=== PATIENT | female | born 1950 | race Caucasian/White ===

== ENCOUNTER 2016-11-10 19:54 | Inpatient (IN) ==
[2016-11-10] MEDS ORDERED: ONDANSETRON 4 MG/2 ML VIAL IV STA (20:09)
[2016-11-10] MEDS ORDERED: FUROSEMIDE 100 MG/10 ML VIAL IV STA (20:09)
[2016-11-10] MEDS ORDERED: ENOXAPARIN 100 MG/ML SYRINGE SUBCUT STA (20:11)
[2016-11-10] MEDS ORDERED: FUROSEMIDE 100 MG/10 ML VIAL ONE (20:16)
[2016-11-10] MEDS ORDERED: ONDANSETRON 4 MG/2 ML VIAL ONE (20:16)
[2016-11-10] MEDS ORDERED: ENOXAPARIN 120 MG/0.8 ML SYRINGE SUBCUT ONE (20:16)
[2016-11-10 20:38] LABS: Basophils # 0.1 10*3/uL (0.0-0.2); Basophils % 0.7 % (0.0-0.8); Eosinophils # 0.2 10*3/uL (0.0-0.87); Eosinophils % 1.9 % (0.00-10.9); Hematocrit 41.8 VOL% (35.7-47.0); Hemoglobin 13.8 GM/DL (12.0-16.0); Immature Granulocytes % 0.3 %; Immature Granulocytes Absolute 0.03 #; Lymphocytes # 3.3 10*3/uL (1.4-4.0); Mean Corpuscular Hemoglobin 31 PG (27-34); Mean Corpuscular Volume 94.8 FL (87-102); Mean Platelet Volume 11.5 FL (9.6-12.0); Monocytes # 0.6 10*3/uL (0.11-0.8); Monocytes % 6.8 % (1.7-12.7); Neutrophils # 4.6 10*3/uL (1.4-7.4); Neutrophils % 52.3 % (38.7-73.9); Platelet Count 252 T/CUMM (130-400); Red Blood Count 4.41 MC/CUMM (3.8-5.5); White Blood Count 8.7 T/CUMM (4-12)
--- NOTE | 2016-11-10 21:03 | Emergency Department Note ---
Ronnie Gonzalez Mantricia, am scribing for, and in the presence of, Naveed Rao MD 20:22. Maira Gonzalez Charles R, MD, personally performed the services described in this documentation, ascribed by Srikanth Trujillo in my presence, and it is both accurate and complete . Arrival - Arrival Chief Complaint: Arrhythmia/Palpitations Stated Complaint: A-Fib ED Nursing Triage Note: C/C pt went to [facility] ER this evening for CP, hurting all day. Pt has hx of A-fib. Pt denied CP at this time. Pt was sent here for A- fib RVR. Mode of Arrival: Stretcher Limitations: No Limitations Source: Patient Time Seen by Provider: 11/10/16 20:07 - History of Present Illness HPI Narrative: Pt is a 66 y/o white female arriving to ED with c/o chest pain that onset today. She is a transfer from [facility]. She was sent here for a A-fib RVR. Pt reports that she has been having the pain all day; however she denies pain at this time. She also reports a UTI about a week ago, but it has now cleared up. Pt has a PMHx of CHF, a heart cath, acid reflux, cholecystectomy, and an appendicitis but denies DM and HLD. She also denies smoking or ever taking blood thinners. Pt states that she cannot be shocked because she has a brain stimulator device in her chest. Onset (ago): hour(s) Consistency: constant Severity: mild Severity scale (1-10): 3 Allergies/Adverse Reactions: Allergies Allergy/AdvReac Type Severity Reaction Status Date / Time aspirin Allergy Palpitation Verified 11/10/16 20:10 s Review of System - Review of System 12 point system: reviewed and no additional remarkable complaints except as stated - Review of System Constitutional: Absent: chills, diaphoresis, fever Eyes: Absent: discharge, pain Head/Ears/Nose/Throat: Absent: earache Respiratory: Absent: cough, respiratory distress, wheezing Cardiovascular: Present: chest pain. Absent: dyspnea on exertion Gastrointestinal: Absent: abdominal pain, nausea, vomiting, diarrhea Genitourinary female: Absent: abnormal menses, dysuria Musculoskeletal: Absent: arm pain, back pain, lower back pain, leg pain, neck pain Skin: Absent: rash, lesions Neurological: Absent: headache, weakness Psychiatric: Absent: anxiety, depression Medical,Surgical,& Family Hx - Medical History Cardio: History of: Cardiac Dysrhythmia (A-fib), CHF, CAD, Hypertension Neurology: History of: Cerebrovascular Accident, Parkinson's Disease Endocrine: No history of: Diabetes Mellitus (IDDM), Diabetes Mellitus (NIDDM), Dyslipidemia Respiratory: History of: Asthma Genitourinary: History of: Recurring Urinary Tract Infections Gastrointestinal: History of: GERD - Surgical History Cardiac Surgeries: Sugical HX of: Cardiac Catheterization Neurologic Surgeries: Surgical HX of: Neurologic Surgery (Deep brain stimulation surgery) HEENT Surgeries: Surgical HX of: Tonsilectomy & Adenoidectomy Abdominal Surgeries: Surgical HX of: Cholecystectomy Patient denies: Appendectomy Reproductive Surgeries: Patient denies;: Hysterectomy Orthopedic Surgeries: Surgical HX of;: Total Knee Replacement (L knee) - Social History Smoking Status: Never smoker Frequency of Alcohol Use: None Type of Drug Use: None Exam Vital Signs: Vital Signs Temperature 98.4 F 11/10/16 19:54 Pulse Rate 138 H 11/10/16 19:54 Respiratory Rate 18 11/10/16 19:54 Blood Pressure 110/69 11/10/16 19:54 O2 Sat by Pulse Oximetry 99 11/10/16 19:54 - General General appearance: alert, in no apparent distress - Head Head exam: Present: atraumatic, normocephalic, normal inspection - Eye Eye exam: Present: normal appearance, PERRL, EOMI - ENT ENT exam: Present: normal exam, normal oropharynx, mucous membranes moist, TM's normal bilaterally, normal external ear exam - Neck Neck exam: Present: full ROM, trachea midline, other (distention). Absent: tenderness - Chest Chest inspection: Present: normal inspection, symmetric chest wall rise. Absent : tenderness - Respiratory Respiratory exam: Present: rales - Cardiovascular Cardiovascular exam: Present: normal rhythm, tachycardia, normal heart sounds - Abdominal Exam Abdominal exam: Present: soft, normal bowel sounds. Absent: distention, tenderness, guarding, rebound - Extremities Exam Extremities exam: Present: full ROM, normal capillary refill, other (+1 edema in LE). Absent: tenderness - Back Exam Back exam: Present: normal inspection, full ROM. Absent: tenderness - Neurological Exam Neurological exam: Present: alert, oriented X3, CN II-XII intact, reflexes normal - Psychiatric Psychiatric exam: Present: normal affect, normal mood - Skin Skin exam: Present: warm, dry, intact, normal color Course - Consultations Consultation #1: Hospitalist will admit Time: 21:02 Results - Labs CBC & BMP: 11/10/16 20:18 Lab Results: I have reviewed the patients labs Critical Care Time Critical Care Time: Yes Total Critical Care Time: 60 Disposition Clinical Impression: Palpitations, Anxiety, Atrial fibrillation with RVR, Congestive heart failure, COPD (chronic obstructive pulmonary disease), Acute dyspnea, Chest pain Case discussed with: patient Disposition: Still a Patient Condition: Guarded Time of Disposition: 21:03
[2016-11-10 21:13] LABS: Alanine Aminotransferase 27 U/L (13-56); Albumin 3.5 G/DL (3.4-5.0); Alkaline Phosphatase 126 U/L (45-117); Aspartate Amino Transferase 27 U/L (0-37); Bilirubin,Total < 0.39 MG/DL (0.2-1.0); Blood Urea Nitrogen 14 MG/DL (7-18); Calcium 8.7 MG/DL (8.5-10.1); Glucose 112 MG/DL (74-106); Magnesium 1.5 MG/DL (1.8-2.4); Osmolality,Calculated 274.8 MOS/KG (273-304); Potassium 4.4 MMOL/L (3.5-5.1); Sodium 137 MMOL/L (136-145); Total Protein 7.1 G/DL (6.4-8.3); Troponin I Only < 0.015 NG/ML (0.00-0.045)
[2016-11-10] MEDS ORDERED: DIGOXIN 0.5 MG/2 ML AMP ONE ×2 (21:19→21:20)
[2016-11-10] MEDS ORDERED: DIGOXIN 0.5 MG/2 ML AMP IV STA ×3 (21:23→21:45)
--- NOTE | 2016-11-10 21:26 | EKG Report ---
Stationary ECG Study [facility] Test Date: 11/10/2016 9:27:31 PM Pat Name: JOSE LACY Department: Room: 125 Gender: F Media Relations Specialist: : 1950 Requested by: Naveed Khalil Order Number: [id number] Reading MD: BECKY KIMBALL Intervals [place] Rate: 138 P: 999 LA: 0 QRS: 34 QRSD: 95 T: 120 QT: 179 QTc: 260 Interpretive Statements ATRIAL FLUTTER WITH RAPID VENTRICULAR RESPONSE Electronically Signed On 11-11-16 13:46:34 CDT by BECKY KIMBALL [id number]
[2016-11-10] MEDS ORDERED: DIGOXIN 0.25 MG TABLET PO STA (22:36)
--- NOTE | 2016-11-10 22:49 | Hospitalist History & Physical ---
Assessment and Plan (1) Atrial flutter Status: Acute Assessment and plan: Continue Duragesic digitalis for the meantime. Because of hypotension amiodarone was foregone. Patient will be seen by cardiology obtain a 2D echo to assess chambers. Again he should be noted that if the blood pressure is robust and the patient goes back into atrial flutter fib was muller patient will be put on amiodarone drip. Current Visit: Yes (2) Hypotension Status: Acute Assessment and plan: Monitor blood pressure closely on digitalis. Continue serial troponins. Put patient on the Lovenox for full anticoagulation. Current Visit: Yes (3) Parkinsonism Status: Acute Assessment and plan: This patient has brain stimulators put in the chest. Avoid any electric shocks to this patient because that can kill her. Current Visit: Yes History of Present Illness Chief complaint: Transfer from [facility] with palpitation arrhythmia and hypotension History of present illness: Ms. Kapadia is a 66 year old female arriving to ED with c/o chest pain that onset today. She is a transfer from [facility]. She was sent here for a A-fib RVR. Pt reports that she has been having the pain all day; however she denies pain at this time. She also reports a UTI about a week ago, but it has now cleared up. Pt has a PMHx of CHF, a heart cath, acid reflux, cholecystectomy, and an appendicitis but denies DM and HLD. She also denies smoking or ever taking blood thinners. Pt states that she cannot be shocked because she has a brain stimulator device in her chest. Reportedly this patient was given some medication at [facility] suspected to be diltiazem to slow her heart down to drop her blood pressure. Patient vented. After the syncopal episode and recovery patient was shaved to [facility] ER where she was seen by Dr. Rao. The ER physician put the patient back on the diltiazem drip and started her on a full dose Lovenox for A. fib anticoagulation which she was not on. Patient is known to have atrial fibrillation she says. She also has a history of parkinsonism for which she has brain stimulator for management of it. His brain stimulators are present in the chest. Because of these she cannot receive any cardioversion or shock during ACLS. When I saw the patient in the hospital she was on diltiazem drip with systolic blood pressure in the 80s. Heart rate was around 145 beats a minute and quite irregular. Patient was in atrial flutter with approximately 1-2 conduction. He did complain of some chest discomfort transiently that went away. Because of persistent hypotension and intolerance to diltiazem I was forced to discontinue it and give the patient IV digitalis. This was given at a dose of 0.25 mg IV slowly every 5-10 minutes guided by the patient's heart rate response. She received 0.75 mg total. Last time was at the bedside it was around 72 and systolic blood pressure was above 100. She was to get the Lovenox plan to put her on oral digitalis with a plan to check dig level in the morning. Patient will be admitted to CCU Allergies Allergy/AdvReac Type Severity Reaction Status Date / Time aspirin Allergy Palpitation Verified 11/10/16 20:10 s Medical,Surgical,& Family Hx - Medical History Cardio: History of: Cardiac Dysrhythmia (A-fib), CHF, CAD, Hypertension Neurology: History of: Cerebrovascular Accident, Parkinson's Disease Endocrine: No history of: Diabetes Mellitus (IDDM), Diabetes Mellitus (NIDDM), Dyslipidemia Respiratory: History of: Asthma Genitourinary: History of: Recurring Urinary Tract Infections Gastrointestinal: History of: GERD - Surgical History Cardiac Surgeries: Sugical HX of: Cardiac Catheterization Neurologic Surgeries: Surgical HX of: Neurologic Surgery (Deep brain stimulation surgery) HEENT Surgeries: Surgical HX of: Tonsilectomy & Adenoidectomy Abdominal Surgeries: Surgical HX of: Cholecystectomy Patient denies: Appendectomy Reproductive Surgeries: Patient denies;: Hysterectomy Orthopedic Surgeries: Surgical HX of;: Total Knee Replacement (L knee) - Social History Smoking Status: Never smoker Frequency of Alcohol Use: None Type of Drug Use: None Review of systems: 12 point system assessment was done. Review of systems significant for the chief complaint history of presenting illness above and past medical history. She is not in pain at this time no respiratory distress no altered mental status Exam - Constitutional Vitals: Period Temp Pulse Resp BP Sys/Stevens Pulse Ox Last 24 Hr 98.4 F-98.4 F 138-138 16-18 110/69 99 General appearance: normal weight, no acute distress - Head Head exam: Present: normocephalic, atraumatic - Eye Eye exam: Present: EOMI Pupils: Present: RYAN - ENT ENT exam: Present: normal oropharynx - Neck Neck exam: Present: other (Supple neck patient has electrodes running on both side of her neck for brain stimulation) - Respiratory Respiratory exam: Present: clear to auscultation bilaterally, other (No rales no wheezing) - Cardiovascular Cardiovascular exam: Present: other (Patient is in atrial flutter 1-2 conduction at presentation and now the rate around 70s) - Extremities Exam Extremities exam: Present: full ROM - Back Exam Back exam: Present: normal inspection - Neurological Exam Neurological exam: Present: alert, oriented X3, CN II-XII intact - Psychiatric Psychiatric exam: Present: other (Slightly apprehensive but appropriate) - Skin Skin exam: Present: normal color, warm, dry Results - Labs CBC & BMP: 11/10/16 20:18 11/10/16 20:18 Lab Results: I have reviewed the past 24 hour labs
[2016-11-11] MEDS ORDERED: SODIUM CHLORIDE 0.9% 500 ML IV ONE (00:31)
[2016-11-11] MEDS: SODIUM CHLORIDE 0.9% 1,000 ML IV SCH ×2 (01:25→14:53)
[2016-11-11] MEDS: NOREPINEPHRINE 8 MG in SODIUM CHLORIDE 0.9% 242 ML IV SCH (03:03)
[2016-11-11 05:37] LABS: Troponin I Only < 0.015 NG/ML (0.00-0.045)
--- NOTE | 2016-11-11 06:51 | Cardiology Consult Note ---
Assessment and Plan - Time spent with patient Time spent with patient: Greater than 30 minutes (exam, interview, chart review , documentation and orders) (1) Parkinson disease Status: Chronic Assessment and plan: Status post surgical intervention with masked face. Significant gait abnormality which I did not examine or observe Current Visit: Yes (2) Obesity Status: Chronic Current Visit: Yes Qualifiers: Obesity type: due to excess calories (3) Obstructive sleep apnea Status: Chronic Assessment and plan: She states that she had a sleep study years ago and she had obstructive sleep apnea but "not enough to wear a mask." This was many years ago Current Visit: Yes (4) Narcotic abuse Status: Chronic Current Visit: Yes (5) Chest pain Status: Acute Assessment and plan: She has negative cardiac biomarkers no EKG changes. This appears to be related to her rate and atrial flutter with 2 1 AV block. Therefore likely rate related possible demand ischemia Current Visit: Yes (6) Atrial flutter Status: Acute Assessment and plan: I do not know if this is new or old. She states she has had problems with fast heart rate for many years. I suspect is related to her comorbidities including obstructive sleep apnea obesity hypoventilation syndrome and possibly underlying cardiomyopathy. If she has a cardiomyopathy is currently difficult to tell if this is due to the rate or if the dysrhythmia due to underlying cardiomyopathy. Current Visit: Yes (7) Hypotension Status: Acute Assessment and plan: Likely multifactorial. Will await her urinalysis white counts normal I suspect this is due to diuresis. She appears to be slightly volume contracted by exam she is received several doses of Lasix. We are gently rehydrating because she may very well have underlying cardiomyopathy based on exam. Look for other causes try to wean her pressors down her heart rates under control Current Visit: Yes History of Present Illness - Data of Consult Patient: new to practice Consult date: 11/11/16 Requesting Physician: Herb Timmons ([place] [facility]) - Consult Narrative Reason for consult: tachycardia and hypotension History of present illness: Ms. Kapadia is a 66 year old female who gives a history of many medical problems but is currently not on any medications for these medical problems that include congestive heart failure and Parkinson disease as major diagnosis as well as some type of long-standing tachycardia. She states that she had surgery for her Parkinson disease in [place] and had a stroke after this but "they denied it but my daughter who is a nurse practitioner in [place] called him on it." The patient states that she sleeps in a recliner at home because of chronic back pain after a suboptimal back surgery. Her primary care physician is Dr. Potts in [place]. She is on no medications for any heart failure regimen regimen nor is she on any Parkinson's medications. She is on mainly mood altering, skeletal muscle relaxants and narcotic pain medications. She is alleges that she has palpitations with aspirin. She denies any anaphylactoid or anaphylactic type symptoms skin changes or airway compromise. The patient states that she saw Dr. Suh as the last system support developer for heart failure. Dr. Suh has not been practicing for almost 20 years. The patient states that she has heart failure. She is not aware of her ejection fraction she states she has never had a heart cath initially and then she states may be she has had one in the past. It is very difficult to know. The patient came to the emergency room at [facility] because last when she was seen by her home health care nurse she had a heart rate of 160+. Dr. Potts was notified and gave her by systolic and came back the next day was still high they increased her Bystolic this is gone on for several episodes since that time and now ultimately she was referred to the [facility] emergency room where she was found to be in atrial flutter with 2-1 block and a heart rate of basically 150. She was transferred here. She has been given Lasix for her heart failure she has been given IV digoxin. They gave her a 20 mg bolus of IV Cardizem at [facility] and dropped precipitously dropped her blood pressure. She was transferred here she received more Lasix and more digoxin I was called this last night around midnight because of her persistent tachycardia. I ordered a fluid bolus and a lower dose diltiazem. Her heart rate has come down but apparently she was started on pressors in the interim. She is alert awake sitting with a head of bed up approximately 30 with Cardizem infusion at 5 mg/h and Levophed infusion as well. Her only request is that I remove her Gallegos. The patient initially told me she did not walk at all she told me that she lives independently with her daughter living next door to her then she told me she does walk with a walker. Is very difficult to get a meaningful history from this patient. If you asked the same question in 2 different ways you get 2 different answers frequently. CC: Herb Timmons MD - Home Medications and Allergies Home Medications: Home Medications Medication Instructions Recorded Confirmed Type Furosemide Tab [Lasix Tab] 40 mg PO BID DIURETIC 11/11/16 11/11/16 History HYDROcodone/ACETAMIN 5-325 [[place] 5 mg PO Q3-4H PRN 11/11/16 11/11/16 History 5-325] LORazepam TAB [Ativan Tab] 1 mg PO TID 11/11/16 11/11/16 History Nitroglycerin Sl Tab [Nitrostat] 0.4 mg PO DIRECTED PRN 11/11/16 11/11/16 History Orphenadrine Citrate 100 mg PO BID 11/11/16 11/11/16 History Promethazine Tab [Phenergan Tab] 25 mg PO Q4-6H 11/11/16 11/11/16 History Venlafaxine HCl [Venlafaxine HCl 75 mg PO Q6HR 11/11/16 11/11/16 History ER] tiZANidine [Zanaflex] 4 mg PO BEDTIME 11/11/16 11/11/16 History Allergies/Adverse Reactions: Allergies Allergy/AdvReac Type Severity Reaction Status Date / Time aspirin Allergy Palpitation Verified 11/10/16 20:10 s - Constitutional Constitutional: Present: daytime sleepiness, fatigue, headache(s), lethargy, malaise, weakness, weight gain. Absent: stops breathing during sleep - EENT Eyes: Present: blurry vision. Absent: diplopia Ears: Absent: decreased hearing Nose, mouth and throat: Present: headache(s), hoarseness. Absent: lip swelling , nasal congestion - Cardiovascular Cardiovascular: Present: chest pain at rest (When her heart rate was 150), dyspnea, dyspnea on exertion, lightheadedness, palpitations. Absent: chest pain with activity, edema, orthopnea, PND - Respiratory Respiratory: Present: dyspnea, dyspnea on exertion. Absent: cough - Gastrointestinal Gastrointestinal: Present: constipation, dyspepsia, heartburn. Absent: abdominal pain, bloating - Genitourinary Genitourinary: Present: dysuria - Musculoskeletal Musculoskeletal: Present: arthralgias, back pain, limited range of motion, muscle cramps, muscle weakness, myalgias - Neurological Neurological: Present: abnormal speech, dizziness - Psychiatric Psychiatric: Present: depression, difficulty concentrating - Endocrine Endocrine: Present: heat intolerance. Absent: cold intolerance - Hematologic/Lymphatic Hematologic/Lymphatic: Absent: easy bleeding, easy bruising Medical,Surgical,& Family Hx - Medical History Cardio: History of: Cardiac Dysrhythmia (atrial flutter), CHF (never been evaluated or treated but diagnosis known to patient), Hypertension Neurology: History of: Cerebrovascular Accident (this is not clear), Parkinson' s Disease Endocrine: No history of: Diabetes Mellitus (IDDM), Diabetes Mellitus (NIDDM), Dyslipidemia Respiratory: History of: Asthma Genitourinary: History of: Recurring Urinary Tract Infections Gastrointestinal: History of: GERD - Surgical History Cardiac Surgeries: Sugical HX of: Cardiac Catheterization (many years ago???) Neurologic Surgeries: Surgical HX of: Neurologic Surgery (Deep brain stimulation surgery) HEENT Surgeries: Surgical HX of: Tonsilectomy & Adenoidectomy Abdominal Surgeries: Surgical HX of: Cholecystectomy Patient denies: Appendectomy Reproductive Surgeries: Patient denies;: Hysterectomy Orthopedic Surgeries: Surgical HX of;: Total Knee Replacement (L knee) - Social History Smoking Status: Never smoker Frequency of Alcohol Use: None Type of Drug Use: None Lives With:: Alone Functional capacity: uses cane/walker Physical Examination Vital Signs Temp Pulse Resp BP Pulse Ox 98.4 F 138 H 18 110/69 99 11/10/16 19:54 11/10/16 19:54 11/10/16 19:54 11/10/16 19:54 11/10/16 19:54 General: Present: Appears Well HEENT: Present: Mucus Membranes Dry, Other (no appreciable JVD). Absent: Jaundice, Pallor Neck: Present: Supple Neck, Midline Trachea Cardiac: Present: Reg Rate and Rhythm (atrial flutter with 3:1 AV block at this time), S1/S2, Laterally Displaced, Other (tones not crisp) Lungs: Present: No Wheeze, Rales, Rhonchi Neuro: Present: Cranial Nerve 2-12 Intact Abdomen: Present: Soft, Active Bowel Sounds Gait: Present: Poor Gait Extremities: Absent: Edema Result/EKG - Labs CBC & BMP: 11/10/16 20:18 11/10/16 20:18 Labs: Laboratory Results - last 24 hr 11/11/16 11/11/16 03:43 03:43 Total Creatine Kinase 63 CK-MB (CK-2) 1.6 Troponin I < 0.015 Digoxin 1.70 - EKG EKG results: interpreted by me (atrial flutter.)
[2016-11-11] MEDS ORDERED: ENOXAPARIN 100 MG/ML SYRINGE SUBCUT SCH (07:00)
[2016-11-11 07:13] LABS: Free T4 (Free Thyroxine) 1.22 NG/DL (0.76-1.46); Thyroid Stimulating Hormone 1.41 uIU/ml (0.358-3.74)
--- NOTE | 2016-11-11 07:48 | EKG Report ---
Stationary ECG Study [facility] Test Date: 11/11/2016 2:31:22 AM Pat Name: JOSE LACY Department: Room: 125 Gender: F Self Pay Collector: : 1950 Requested by: Herb Timmons Order Number: [id number] Reading MD: BCEKY KIMBALL Intervals [place] Rate: 111 P: 999 GA: 0 QRS: 21 QRSD: 98 T: 0 QT: 178 QTc: 244 Interpretive Statements ATRIAL FLUTTER WITH RAPID VENTRICULAR RESPONSE NON-SPECIFIC ST-T CHANGES Electronically Signed On 11-11-16 13:51:55 CDT by BECKY KIMBALL [id number]
[2016-11-11] MEDS: ENOXAPARIN 120 MG/0.8 ML SYRINGE SUBCUT SCH ×2 (08:55→18:20)
--- NOTE | 2016-11-11 08:55 | Physician Query Form ---
CLICK EDIT DOCUMENT TO SELECT QUERY ANSWER --> OK --> SIGN Vicki Vo RN, CCDS Certified Clinical Green Energy Marketing Analyst W) [phone] (f) [phone] [email or web address] PROVIDERS: Make your selection(s) from the choices in EACH section by typing an "x" and enter comments in the comment section. Please use your independent medical judgment in providing your response. This request does not imply that any particular answer is desired or expected. CLINICAL INDICATORS: (Providers should not edit this section) The medical record indicates that the patient was admitted with AF, congestive heart failure, acute dyspnea, BNP of 679# and the patient was treated with IV Lasix. Please provide further specificity regarding CHF. ACUITY: ( ) Acute ( ) Chronic ( x) Acute on Chronic ( ) Clinically unable to determine TYPE: ( x) Systolic ( ) Diastolic ( ) Combined Systolic/Diastolic ( ) Other, please specify: ( ) Clinically unable to determine ( ) The patient does NOT have CHF COMMENTS: Use of terms such as suspected, likely, or probable (associated with a specific diagnosis that is being evaluated, monitored, or treated as if it exists) are acceptable and can be restated in the discharge summary if not ruled out. [facility]
[2016-11-11] MEDS: CARVEDILOL 3.125 MG TABLET PO SCH ×2 (08:56→20:14)
[2016-11-11] MEDS: MAGNESIUM OXIDE 400 MG TABLET PO SCH ×2 (08:56→20:14)
[2016-11-11 09:24] LABS: Troponin I Only < 0.015 NG/ML (0.00-0.045)
[2016-11-11] MEDS ORDERED: ONDANSETRON 4 MG/2 ML VIAL ONE (09:29)
[2016-11-11] MEDS: ONDANSETRON 4 MG/2 ML VIAL IV PRN (09:32)
[2016-11-11] MEDS: ACETAMINOPHEN 325 MG TABLET PO PRN (09:52)
--- NOTE | 2016-11-11 10:57 | ECHO Report ---
Sandra Kapadia Exam Date: 11/11/2016 09:23 Referring Physician: Technologist: Caridad Porter RDCS Age: 66 Ht (in): 67 Wt (lb): 269 Gender: F Exam Location: [facility] Echo Indications: Chest pain, unspecified, Parkinson disease, AKTELYNN, Essential (primary) hypertension, Atrial flutter, Tachycardia, unspecified, Palpitations, Narcotic abuse, Weakness, Chronic fatigue, unspecified BP: 131 / 71 HR: 113 Rhythm: Atrial flutter Technical Quality: IMPRESSIONS Left ventricular ejection fraction is estimated at 60 %. Diastolic parameters are equivocal as the patient is in atrial fibrillation. Tricuspid regurgitation velocities suggest a RVSP of 37 mmHg plus the right atrial pressure. Biatrial enlargement Mild right ventricular enlargement MEASUREMENTS (Male / Female) Normal Values 2D ECHO LV Diastolic Diameter PLAX 5.2 cm 4.2 - 5.9 / 3.9 - 5.3 cm LV Systolic Diameter PLAX 3.4 cm LV Fractional Shortening PLAX 35.5 % IVS Diastolic Thickness 1.0 cm 0.6 - 1.0 / 0.6 - 0.9 cm LVPW Diastolic Thickness 1.0 cm 0.6 - 1.0 / 0.6 - 0.9 cm RV Internal Dim ED PLAX 3.3 cm Aortic Root Diameter 3.1 cm LA Systolic Diameter LX 3.4 cm 3.0 - 4.0 / 2.7 - 3.8 cm DOPPLER TR Peak Velocity 304.0 cm/s TR Peak Gradient 37.0 mmHg FINDINGS Left Ventricle Normal left ventricular cavity size. Normal left ventricular wall thickness. Left ventricular ejection fraction is estimated at 60 %. There is limited endocardial resolution however there appears to be no regional wall motion abnormality. Diastolic parameters are equivocal as the patient is in atrial fibrillation. Right Ventricle The right ventricle appears to be slightly enlarged. Right Atrium Mild atrial enlargement in apical view (elongated RA). Left Atrium Mild atrial enlargement in apical view (elongated LA). Mitral Valve Morphologically normal mitral valve. Trace to mild mitral valve regurgitation. Aortic Valve Morphologically normal aortic valve without significant sclerosis or stenosis. There is no aortic regurgitation. Tricuspid Valve Morphologically normal tricuspid valve. Mild tricuspid valve regurgitation. Tricuspid regurgitation velocities suggest a RVSP of 37 mmHg plus the right atrial pressure. Peak regurgitant velocity 3.04 m/s. Pulmonic Valve Morphologically normal pulmonic valve without significant stenosis. There is no pulmonic regurgitation. Pericardium Normal pericardium without effusion. Aorta Normal ascending aorta dimension. Roxanne Suazo (Electronically Signed) Final Date: 11 Nov 2016 10:56
[2016-11-11] MEDS ORDERED: DIGOXIN 0.25 MG TABLET PO SCH (13:00)
--- NOTE | 2016-11-11 13:07 | Hospitalist Progress Note ---
Assessment and Plan (1) Atrial flutter Status: Acute Assessment and plan: 1)aflutter- on dilt and dig with improved rate and BP. on lovenox which Dr Suazo and Dr Timmons discussed with her daughter. 2)dehydration- gentle hydration 3)chronic benodazepine and narcotic use 4)KATELYNN- did not tolerate mask years ago 5)Parkinsons disease- brain stimulator 6)anxiety- also on venlafaxine- restarted Current Visit: Yes (2) Anxiety Status: Acute Current Visit: Yes (3) Hypotension Status: Acute Current Visit: Yes (4) Parkinson disease Status: Chronic Current Visit: Yes (5) Obesity Status: Chronic Current Visit: Yes Qualifiers: Obesity type: due to excess calories (6) Obstructive sleep apnea Status: Chronic Current Visit: Yes Hospitalist: Subjective Interval history: Mrs Kapadia is doing ok this morning. She has a headache as she is prone to and requests some tylenol. Her afib/flutter is under much better control with Dig added and we are weaning her levophed. Exam - Constitutional Vitals: Period Temp Pulse Resp BP Sys/Stevens Pulse Ox Last 24 Hr 97 F-98 F 74-143 13-23 69-131/39-101 92-99 General appearance: mild distress, morbidly obese - Eye Eye exam: Present: EOMI. Absent: scleral icterus - Respiratory Respiratory exam: Present: clear to auscultation bilaterally (distant due to body habitus) - Cardiovascular Cardiovascular exam: Present: irregular rhythm - GI/Abdominal GI/Abdominal exam: Present: normal bowel sounds, soft. Absent: tenderness - Extremities Exam Extremities exam: Absent: edema - Neurological Exam Neurological exam: Present: alert, oriented X3, CN II-XII intact - Skin Skin exam: Present: warm, dry Results - Labs CBC & BMP: 11/10/16 20:18 11/10/16 20:18 Lab Results: I have reviewed the past 24 hour labs
--- NOTE | 2016-11-11 13:46 | EKG Report ---
Stationary ECG Study [facility] Test Date: 11/10/2016 8:00:21 PM Pat Name: JOSE LACY Department: Room: 125 Gender: F Pension Adviser: : 1950 Requested by: Naveed Khalil Order Number: [id number] Reading MD: BECKY KIMBALL Intervals [place] Rate: 138 P: 999 AR: 0 QRS: 46 QRSD: 93 T: 120 QT: 174 QTc: 255 Interpretive Statements ATRIAL FLUTTER WITH RAPID VENTRICULAR RESPONSE Electronically Signed On 11-11-16 13:45:55 CDT by BECKY KIMBALL [id number]
[2016-11-11] MEDS: PROMETHAZINE 25 MG TABLET PO SCH ×3 (13:47→20:55)
[2016-11-11 14:47] LABS: Troponin I Only < 0.015 NG/ML (0.00-0.045)
[2016-11-11] MEDS: LORazepam 1 MG TABLET PO SCH ×2 (14:53→20:14)
[2016-11-11] MEDS ORDERED: FUROSEMIDE 40 MG TABLET PO SCH (16:00)
[2016-11-11] MEDS: VENLAFAXINE 75 MG TABLET PO SCH ×2 (17:03→20:13)
[2016-11-12] MEDS: PROMETHAZINE 25 MG TABLET PO SCH ×6 (00:09→20:07)
[2016-11-12] MEDS: NOREPINEPHRINE 8 MG in SODIUM CHLORIDE 0.9% 242 ML IV SCH (01:34)
[2016-11-12 04:52] LABS: Basophils % 0.5 % (0.0-0.8); Eosinophils # 0.1 10*3/uL (0.0-0.87); Eosinophils % 1.3 % (0.00-10.9); Hematocrit 37.1 VOL% (35.7-47.0); Hemoglobin 12.2 GM/DL (12.0-16.0); Immature Granulocytes % 0.1 %; Immature Granulocytes Absolute 0.01 #; Lymphocytes # 2.8 10*3/uL (1.4-4.0); Lymphocytes % 36.7 % (21.3-54.2); Mean Corpuscular HGB Conc 32.9 GM/DL (32-36); Mean Corpuscular Hemoglobin 31 PG (27-34); Mean Corpuscular Volume 93.9 FL (87-102); Mean Platelet Volume 11.6 FL (9.6-12.0); Monocytes # 0.6 10*3/uL (0.11-0.8); Monocytes % 7.3 % (1.7-12.7); Neutrophils # 4.2 10*3/uL (1.4-7.4); Neutrophils % 54.1 % (38.7-73.9); Platelet Count 217 T/CUMM (130-400); Red Blood Count 3.95 MC/CUMM (3.8-5.5); Red Cell Distribution Width 12.9 % (9.3-17.3); White Blood Count 7.7 T/CUMM (4-12)
[2016-11-12] MEDS: SODIUM CHLORIDE 0.9% 1,000 ML IV SCH (05:00)
[2016-11-12 05:15] LABS: Calcium 7.9 MG/DL (8.5-10.1); Magnesium 1.8 MG/DL (1.8-2.4); Osmolality,Calculated 278.4 MOS/KG (273-304); Potassium 3.6 MMOL/L (3.5-5.1)
[2016-11-12 05:20] LABS: Calcium 7.6 MG/DL (8.5-10.1); Potassium 3.7 MMOL/L (3.5-5.1)
[2016-11-12] MEDS: ENOXAPARIN 120 MG/0.8 ML SYRINGE SUBCUT SCH ×2 (06:01→18:03)
--- NOTE | 2016-11-12 08:09 | XRay Report ---
2 view chest. Indication: Shortness of breath. Comparison: November 10, 2016. The heart is enlarged. 2 electronic devices are present over the chest wall which have leads extending cephalad. Atelectasis has developed in the left lung base. Postsurgical changes of the cervical spine. No pleural effusion. Degenerative changes of the spinal column. Impression: Development of left basilar atelectasis. Stable cardiomegaly. PROCEDURE INTERPRETED AT [facility] DEPARTMENT OF RADIOLOGY Final Report Signed by: Dr. Maru Hayes
[2016-11-12] MEDS: MAGNESIUM OXIDE 400 MG TABLET PO SCH ×2 (09:25→20:07)
[2016-11-12] MEDS: CARVEDILOL 3.125 MG TABLET PO SCH (09:25)
[2016-11-12] MEDS: LORazepam 1 MG TABLET PO SCH ×3 (09:25→20:07)
[2016-11-12] MEDS: VENLAFAXINE 75 MG TABLET PO SCH ×5 (09:25→20:06)
--- NOTE | 2016-11-12 09:38 | Electrophysiology Consultation ---
History of Present Illness - Data of Consult Patient: new to practice Consult date: 11/12/16 Requesting Physician: Roxanne Suazo - Consult Narrative Reason for consult: AFl/RVR, hypotension History of present illness: Ms. Kapadia is a 66 year old female, whi was transferred from [facility] due to A. fib/flutter, RVR, hypertension. She has a history of intermittent tachycardia but she does not recall history of A. fib or flutter in the past. She has severe Parkinson disease, for which she underwent placement of brain stimulator, with bilateral pacemaker devices in both chests. She has not been using these devices recently. Her symptoms are stable. She is obese and quite sedentary, due to chronic, severe low back pain. The surgery for her Parkinson was complicated by periprocedural CVA. She noticed increased heart rate last week and that was evaluated at [facility], initially, she was diuresed, which caused hypotension and more prominent RVR, then was transferred to [facility]. She was given IV fluids, was started on Cardizem drip, now her heart rate is 75 bpm, atrial flutter with 2-1 conduction, typical flutter morphology. She had atrial fibrillation earlier this admission. Now she is feeling fine. Echo showed normal systolic function, borderline pulmonary hypertension, mild biatrial enlargement. She had chest pain, when she was in RVR, no troponin leak. No significant ST-T changes, although difficult to access due to large flutter waves. CC: Kia Elizabeth MD - Home Medications and Allergies Home Medications: Home Medications Medication Instructions Recorded Confirmed Type Furosemide Tab [Lasix Tab] 40 mg PO BID DIURETIC 11/11/16 11/11/16 History HYDROcodone/ACETAMIN 5-325 [[place] 5 mg PO Q3-4H PRN 11/11/16 11/11/16 History 5-325] LORazepam TAB [Ativan Tab] 1 mg PO TID 11/11/16 11/11/16 History Nitroglycerin Sl Tab [Nitrostat] 0.4 mg PO DIRECTED PRN 11/11/16 11/11/16 History Orphenadrine Citrate 100 mg PO BID 11/11/16 11/11/16 History Promethazine Tab [Phenergan Tab] 25 mg PO Q4-6H 11/11/16 11/11/16 History Venlafaxine HCl [Venlafaxine HCl 75 mg PO Q6HR 11/11/16 11/11/16 History ER] tiZANidine [Zanaflex] 4 mg PO BEDTIME 11/11/16 11/11/16 History Allergies/Adverse Reactions: Allergies Allergy/AdvReac Type Severity Reaction Status Date / Time aspirin Allergy Palpitation Verified 11/10/16 20:10 s Medical,Surgical,& Family Hx - Medical History Cardio: History of: Cardiac Dysrhythmia (atrial flutter), CHF (never been evaluated or treated but diagnosis known to patient), CAD, Hypertension Neurology: History of: Cerebrovascular Accident (this is not clear), Parkinson' s Disease Endocrine: No history of: Diabetes Mellitus (IDDM), Diabetes Mellitus (NIDDM), Dyslipidemia Respiratory: History of: Asthma Genitourinary: History of: Recurring Urinary Tract Infections Gastrointestinal: History of: GERD - Surgical History Cardiac Surgeries: Sugical HX of: Cardiac Catheterization (many years ago???) Neurologic Surgeries: Surgical HX of: Neurologic Surgery (Deep brain stimulation surgery) HEENT Surgeries: Surgical HX of: Tonsilectomy & Adenoidectomy Abdominal Surgeries: Surgical HX of: Cholecystectomy Patient denies: Appendectomy Reproductive Surgeries: Patient denies;: Hysterectomy Orthopedic Surgeries: Surgical HX of;: Total Knee Replacement (L knee) - Social History Smoking Status: Never smoker Frequency of Alcohol Use: None Type of Drug Use: None 12 point system: reviewed and no additional remarkable complaints except as stated Exam - Constitutional Vitals: Period Temp Pulse Resp BP Sys/Stevens Pulse Ox Last 24 Hr 96.1 F-97.4 F 77-126 16-33 93-129/50-74 90-97 General appearance: normal weight, morbidly obese - Head Head exam: Present: normal inspection, normocephalic - Eye Eye exam: Absent: conjunctival injection Pupils: Absent: dilated - ENT ENT exam: Present: normal exam - Neck Neck exam: Present: normal inspection - Respiratory Respiratory exam: Present: clear to auscultation bilaterally - Cardiovascular Cardiovascular exam: Present: irregular rhythm, systolic murmur, tachycardia - GI/Abdominal GI/Abdominal exam: Present: normal bowel sounds. Absent: distended - Extremities Exam Extremities exam: Present: normal inspection, normal capillary refill. Absent: edema - Back Exam Back exam: Present: normal inspection - Neurological Exam Neurological exam: Present: alert, oriented X3 - Psychiatric Psychiatric exam: Present: normal affect, normal mood - Skin Skin exam: Present: normal color, warm. Absent: cyanosis Results - Labs CBC & BMP: 11/12/16 04:36 11/12/16 04:36 Lab Results: I have reviewed the past 24 hour labs Assessment and Plan (1) Atrial fibrillation with RVR Status: Acute Assessment and plan: 64-year-old female, presenting with atrial fibrillation/atypical atrial flutter , RVR, hypertension. Mild acute kidney injury, resolved with hydration. Severe Parkinson's disease, status post bilateral brain stimulator. Morbid obesity, chronic pain issues. -Typical atrial flutter and atrial fibrillation. Heart rate is now better controlled. Stop Coreg, digoxin. Preserved systolic function, borderline PHTN. Start sotalol 120 mg twice daily, mild acute kidney injury resolved. -Continue to wean off Cardizem drip. Switch to p.o., if heart rate remains elevated with sotalol. -Check daily EKG, monitor QTC. Follow BMP/magnesium. -Blood pressure is now normal, with better controlled heart rate. Had borderline PHTN even when she was dehydrated. Stop IVF. I would continue to hold off Lasix for now, unless becomes symptomatic from congestion/volume overload. -If the arrhythmia persists and remains symptomatic, we may need to proceed with a cardioversion. I contacted [employer] and awaiting response if CV can be performed with her brain stimulators. 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 Continue to pursue intensive rate/rhythm control. Northera is an option if this remains an issue. -If she remains refractory, ablation can be pursued. We would need to address suspected sleep apnea, before proceeding with this. Will get a sleep consult. -Continue anticoagulation. We may switch her to a NOAC, before discharge. Current Visit: Yes (2) COPD (chronic obstructive pulmonary disease) Status: Acute Current Visit: Yes (3) Chest pain Status: Acute Current Visit: Yes (4) Atrial flutter Status: Acute Current Visit: Yes (5) Hypotension Status: Acute Current Visit: Yes (6) Parkinsonism Status: Chronic Current Visit: Yes (7) Obesity Status: Chronic Current Visit: Yes Qualifiers: Obesity type: due to excess calories (8) Obstructive sleep apnea Status: Chronic Current Visit: Yes
--- NOTE | 2016-11-12 09:48 | Cardiology Progress Note ---
Ladarius Gonzalez April, RN, am scribing for, and in the presence of, Roxanne Suazo DO 09 :48. Assessment and Plan (1) Atrial flutter Status: Acute Current Visit: Yes (2) Parkinsonism Status: Chronic Current Visit: Yes (3) Narcotic abuse Status: Chronic Current Visit: Yes (4) Obesity Status: Chronic Current Visit: Yes Qualifiers: Obesity type: due to excess calories (5) Obstructive sleep apnea Status: Chronic Current Visit: Yes Cardiology - PN: Subj Interval history: Ms. Kapadia is seen in the cardiac care unit resting in bed in no acute distress. Oxygen is in use via nasal cannula, O2 sat 93%. She denies any chest pain, shortness of breath, palpitations, or dizziness. She says she slept very well last night. telemetry monitor currently shows atrial flutter with heart rates in the 80s, blood pressure 97/73. The nurse tells me her diltiazem infusion was stopped yesterday because her heart rates were within normal range. During the night they elevated as high as in the 140s and the diltiazem had to be started back, diltiazem is currently infusing at 15. I saw Ms. Kapadia this morning with Ms. Durand. I discussed with Dr. Carl in the CCU I will ask him to see Mr. Kapadia. She has not been tolerant of AV karen blocking agents because of hypertension. She has a preserved ejection fraction continues to be in atrial flutter. His help is appreciated. It certainly seems as Parkinson's may be playing a role in her hypotension his help is greatly appreciated worship of normal sinus rhythm may be helpful Exam (Progress Note) - Constitutional Vitals: Period Temp Pulse Resp BP Sys/Setvens Pulse Ox Last 24 Hr 96.1 F-97.4 F 77-126 16-33 93-131/50-74 90-97 General appearance: no acute distress, morbidly obese - Head Head exam: Absent: abrasion, hematoma - Eye Eye exam: Absent: periorbital swelling, laceration to eyelids - Respiratory Respiratory exam: Present: clear to auscultation bilaterally, other (oxygen via nasal canula). Absent: accessory muscle use, chest wall tenderness - Cardiovascular Cardiovascular exam: Present: irregular rhythm - GI/Abdominal GI/Abdominal exam: Present: normal bowel sounds, soft. Absent: distended, tenderness - Extremities Exam Extremities exam: Absent: edema - Neurological Exam Neurological exam: Present: alert, oriented X3 - Psychiatric Psychiatric exam: Present: normal affect, normal mood - Skin Skin exam: Present: warm, dry Result/EKG - Labs CBC & BMP: 11/12/16 04:36 11/12/16 04:36 Lab Results: I have reviewed the past 24 hour labs Labs: Laboratory Results - last 24 hr 11/11/16 11/11/16 11/12/16 08:43 13:52 04:36 WBC RBC Hgb Hct MCV MCH MCHC RDW Plt Count MPV Neut % (Auto) Lymph % (Auto) [place] % (Auto) Eos % (Auto) Baso % (Auto) Neut # (Auto) Lymph # (Auto) [place] # (Auto) Eos # (Auto) Baso # (Auto) Immature Gran % Nucleated RBC % Immature Gran # Nucleated RBCs # Sodium 140 Potassium 3.6 Chloride 104 Carbon Dioxide 30 Anion Gap 9.6 BUN 11 Creatinine 1.00 GFR Calculation 79 BUN/Creatinine Ratio 11.00 Glucose 119 H Calculated Osmolality 278.4 Calcium 7.9 L Magnesium 1.8 Total Creatine Kinase 66 61 CK-MB (CK-2) 1.6 1.6 Troponin I < 0.015 < 0.015 11/12/16 11/12/16 04:36 04:36 WBC 7.7 RBC 3.95 Hgb 12.2 Hct 37.1 MCV 93.9 MCH 31 MCHC 32.9 RDW 12.9 Plt Count 217 MPV 11.6 Neut % (Auto) 54.1 Lymph % (Auto) 36.7 [place] % (Auto) 7.3 Eos % (Auto) 1.3 Baso % (Auto) 0.5 Neut # (Auto) 4.2 Lymph # (Auto) 2.8 [place] # (Auto) 0.6 Eos # (Auto) 0.1 Baso # (Auto) 0.0 Immature Gran % 0.1 Nucleated RBC % 0.0 Immature Gran # 0.01 Nucleated RBCs # 0.00 Sodium 143 Potassium 3.7 Chloride 105 Carbon Dioxide 30 Anion Gap 11.7 BUN 11 Creatinine 0.90 GFR Calculation 90 BUN/Creatinine Ratio 12.00 Glucose 123 H Calculated Osmolality 284.0 Calcium 7.6 L Magnesium Total Creatine Kinase CK-MB (CK-2) Troponin I - EKG EKG results: interpreted by me (atrial flutter with variable AV block.) I, Roxanne Suazo, , personally performed the services described in this documentation, ascribed by Abigail Durand RN in my presence, and it is both accurate and complete 948 .
[2016-11-12] MEDS: SOTALOL 80 MG TABLET PO SCH ×2 (10:20→20:06)
--- NOTE | 2016-11-12 12:52 | Hospitalist Progress Note ---
Assessment and Plan (1) Atrial flutter Status: Acute Assessment and plan: 1)aflutter- on dilt and dig with improved rate and BP. on lovenox which Dr Suazo and Dr Timmons discussed with her daughter. Dr Carl has seen her and recommends at this point stopping dig and coreg adn starting sotolol and weaning dilt drip. Continue anticoagulation with Lovenox. 2)dehydration- rseolved, fluids stopped. 3)chronic benodazepine and narcotic use 4)KATELYNN- did not tolerate mask years ago- Dr Garcia to see. 5)Parkinsons disease- brain stimulator 6)anxiety- also on venlafaxine- restarted Current Visit: Yes (2) Anxiety Status: Acute Current Visit: Yes (3) Hypotension Status: Acute Current Visit: Yes (4) Parkinson disease Status: Chronic Current Visit: Yes (5) Obesity Status: Chronic Current Visit: Yes Qualifiers: Obesity type: due to excess calories (6) Obstructive sleep apnea Status: Chronic Current Visit: Yes Hospitalist: Subjective Interval history: Mrs Kapadia looks better today. She remains in afib buther heart rate at this time is in the 80-90 range and her BP is better- she is off pressors. She is feeling better. Exam - Constitutional Vitals: Period Temp Pulse Resp BP Sys/Stevens Pulse Ox Last 24 Hr 96.1 F-97.4 F 77-107 16-33 93-129/50-72 90-97 General appearance: no acute distress, morbidly obese - Head Head exam: Present: normocephalic, atraumatic - Eye Eye exam: Present: EOMI. Absent: scleral icterus - Respiratory Respiratory exam: Present: clear to auscultation bilaterally - Cardiovascular Cardiovascular exam: Present: irregular rhythm - GI/Abdominal GI/Abdominal exam: Present: normal bowel sounds, soft. Absent: tenderness - Extremities Exam Extremities exam: Absent: edema Results - Labs CBC & BMP: 11/12/16 04:36 11/12/16 04:36 Lab Results: I have reviewed the past 24 hour labs
--- NOTE | 2016-11-12 13:28 | Sleep Medicine Consult ---
Assessment and Plan (1) Obstructive sleep apnea Status: Chronic Assessment and plan: This patient has never been formally diagnosed with obstructive sleep apnea but with her presenting illness and her comorbidities and physical findings, I do think that sleep evaluation should be done to exclude obstructive sleep apnea. This patient resides in [place] and would much rather have her sleep evaluation done in [place] and we will therefore set her up at the [facility] sleep center to be done as soon as possible. She does understand that she could be done quicker if she could get over here but she thinks she will have a hard time being able to do so. Follow-up after her sleep study will be at the [facility] sleep clinic. I will be out of town for the rest of this week. Thank you for this consult and the opportunity to participate in her care. Current Visit: Yes (2) Atrial fibrillation with RVR Status: Acute Assessment and plan: Untreated obstructive sleep apnea can be a contributing factor to atrial fibrillation. The prevalence rate for obstructive sleep apnea in patients with A. fib ranges from 30-80%. Controlling the underlying sleep apnea can decrease recurrence rate by almost 50%. Current Visit: Yes History of Present Illness Chief complaint: Sleep apnea History of present illness: Ms. Kapadia is a 66 year old female transferred from outside hospital in [place] with atrial fibrillation with rapid ventricular response. She has been seen by cardiology and sleep medicine was consulted. She does have a history of snoring but denies any difficulty maintaining sleep. She has never been told that she stops breathing during sleep and denies awakening from sleep short of breath. She usually retires around 10 or 11 PM and awakens between 7 and 8 the next morning. She will take a nap each afternoon but denies falling asleep while reading or doing other routine activities. She does have significant chronic health problems that includes Parkinson's disease. She does have a brain stimulator in place and apparently with its placement surgically, she suffered a perioperative stroke. She does have a family history of obstructive sleep apnea. Home Medications Medication Instructions Recorded Confirmed Type Furosemide Tab [Lasix Tab] 40 mg PO BID DIURETIC 11/11/16 11/11/16 History HYDROcodone/ACETAMIN 5-325 [[place] 5 mg PO Q3-4H PRN 11/11/16 11/11/16 History 5-325] LORazepam TAB [Ativan Tab] 1 mg PO TID 11/11/16 11/11/16 History Nitroglycerin Sl Tab [Nitrostat] 0.4 mg PO DIRECTED PRN 11/11/16 11/11/16 History Orphenadrine Citrate 100 mg PO BID 11/11/16 11/11/16 History Promethazine Tab [Phenergan Tab] 25 mg PO Q4-6H 11/11/16 11/11/16 History Venlafaxine HCl [Venlafaxine HCl 75 mg PO Q6HR 11/11/16 11/11/16 History ER] tiZANidine [Zanaflex] 4 mg PO BEDTIME 11/11/16 11/11/16 History Allergies Allergy/AdvReac Type Severity Reaction Status Date / Time aspirin Allergy Palpitation Verified 11/10/16 20:10 s Review of systems: She does have a history of some restless legs. Exam (Pulmonay) H&P - Constitutional Vitals: Period Temp Pulse Resp BP Sys/Stevens Pulse Ox Last 24 Hr 96.1 F-97.4 F 77-107 16-33 93-129/50-72 90-97 Exam: She is alert and responsive in no acute distress. Pupils equal round reactive to light and accommodation. Extraocular movements intact. Oropharynx with a class IV Mallampati exam. Neck is supple without adenopathy or thyromegaly. Chest with symmetrical breath sounds without focal wheeze or rhonchi. Cardiac exam reveals a regular rhythm without murmur or gallop. Abdomen obese nontender without palpable hepatosplenomegaly or mass. Extremities are without clubbing, cyanosis, or edema. Neurologically, she is grossly intact. She moves all extremities with good strength. Medical,Surgical,& Family Hx - Medical History Cardio: History of: Cardiac Dysrhythmia (atrial flutter), CHF (never been evaluated or treated but diagnosis known to patient), CAD, Hypertension Neurology: History of: Cerebrovascular Accident (this is not clear), Parkinson' s Disease Endocrine: No history of: Diabetes Mellitus (IDDM), Diabetes Mellitus (NIDDM), Dyslipidemia Respiratory: History of: Asthma Genitourinary: History of: Recurring Urinary Tract Infections Gastrointestinal: History of: GERD - Surgical History Cardiac Surgeries: Sugical HX of: Cardiac Catheterization (many years ago???) Neurologic Surgeries: Surgical HX of: Neurologic Surgery (Deep brain stimulation surgery) HEENT Surgeries: Surgical HX of: Tonsilectomy & Adenoidectomy Abdominal Surgeries: Surgical HX of: Cholecystectomy Patient denies: Appendectomy Reproductive Surgeries: Patient denies;: Hysterectomy Orthopedic Surgeries: Surgical HX of;: Total Knee Replacement (L knee) - Social History Smoking Status: Never smoker Frequency of Alcohol Use: None Type of Drug Use: None Results - Labs CBC & BMP: 11/12/16 04:36 11/12/16 04:36 Labs: TSH within normal limits
[2016-11-12] MEDS: ACETAMINOPHEN 325 MG TABLET PO PRN (17:57)
[2016-11-12] MEDS ORDERED: LOPERAMIDE 2 MG CAPSULE PO PRN (18:23)
[2016-11-12] MEDS: LACTOBACILLUS ACIDOPHILUS/BULGARICUS CHEW TABLET PO SCH (20:06)
[2016-11-13] MEDS: PROMETHAZINE 25 MG TABLET PO SCH ×6 (00:53→20:32)
[2016-11-13] MEDS: ENOXAPARIN 120 MG/0.8 ML SYRINGE SUBCUT SCH ×3 (06:24→18:05)
[2016-11-13 06:40] LABS: Calcium 8.5 MG/DL (8.5-10.1); Potassium 3.9 MMOL/L (3.5-5.1)
--- NOTE | 2016-11-13 07:27 | EKG Report ---
Stationary ECG Study [facility] Test Date: 11/13/2016 7:27:04 AM Pat Name: JOSE LACY Department: Room: 125 Gender: F Program Eligibility Specialist: PAMELLA : 1950 Requested by: Yemi Carl Order Number: [id number] Reading MD: LISA GLORIA Intervals [place] Rate: 117 P: 999 PA: 0 QRS: 85 QRSD: 98 T: 3 QT: 341 QTc: 410 Interpretive Statements ATRIAL FLUTTER/TACHYCARDIA WITH RAPID VENTRICULAR RESPONSE LOW QRS VOLTAGE IN PRECORDIAL LEADS POOR QUALITY TRACING Electronically Signed On 11-13-16 19:46:09 CDT by LISA GLORIA [id number]
--- NOTE | 2016-11-13 07:27 | Electrophysiology Progress Not ---
Assessment and Plan (1) Atrial fibrillation with RVR Status: Acute Assessment and plan: 64-year-old female, presenting with atrial fibrillation/atypical atrial flutter , RVR, hypertension. Mild acute kidney injury, resolved with hydration. Severe Parkinson's disease, status post bilateral brain stimulator. Morbid obesity, chronic pain issues. -Typical atrial flutter and atrial fibrillation. Continue sotalol. Check daily EKG, follow QTC. No proarrhythmia noted so far. Still RVR, even at rest. -We discussed risks and benefits of management options. If the sotalol is not providing rhythm control, we will plan to proceed with a ARLEN/flutter ablation on Wednesday under MAC. Her Parkinson's likely contributes to her unstable blood pressure with the arrhythmia. Pharmacological rate control of the typical atrial flutter will likely be unsuccessful. -Although she also had atrial fibrillation in the past, I would not pursue a PVI in her case. Confirmed with [employer], her bilateral brain stimulators are very high risk for cerebral injury, if cardioversion is performed. During A. fib ablation, hemodynamically unstable SVT, need for cardioversion is not uncommon. Once the flutter is ablated, we will continue sotalol for rhythm control. She is also getting KATELYNN workup. -Hypotension, acute kidney injury. Resolved. I suspect this was due to dehydration. -Continue anticoagulation. Follow CBC. -Discussed treatment plan with patient's daughter, who is in SAL[employer]IST[employer]. Current Visit: Yes (2) COPD (chronic obstructive pulmonary disease) Status: Acute Current Visit: Yes (3) Chest pain Status: Acute Current Visit: Yes (4) Atrial flutter Status: Acute Current Visit: Yes (5) Hypotension Status: Acute Current Visit: Yes (6) Parkinsonism Status: Chronic Current Visit: Yes (7) Obesity Status: Chronic Current Visit: Yes Qualifiers: Obesity type: due to excess calories (8) Obstructive sleep apnea Status: Chronic Current Visit: Yes Electrophysiology Subjective Interval history: Still in typical atrial flutter, variable conduction, up to 2-1. Her blood pressure now improved. Exam - Constitutional Vitals: Period Temp Pulse Resp BP Sys/Stevens Pulse Ox Last 24 Hr 97.6 F-97.9 F 77-153 14-32 84-128/31-111 90-97 General appearance: no acute distress, morbidly obese - Head Head exam: Present: normal inspection, normocephalic - Eye Eye exam: Absent: conjunctival injection Pupils: Absent: dilated - ENT ENT exam: Present: normal external ear exam - Neck Neck exam: Present: normal inspection - Respiratory Respiratory exam: Present: clear to auscultation bilaterally, prolonged expiratory phase - Cardiovascular Cardiovascular exam: Present: irregular rhythm, tachycardia - GI/Abdominal GI/Abdominal exam: Present: normal bowel sounds. Absent: distended - Extremities Exam Extremities exam: Present: normal inspection, normal capillary refill. Absent: edema - Back Exam Back exam: Present: normal inspection - Neurological Exam Neurological exam: Present: alert, oriented X3 - Psychiatric Psychiatric exam: Present: normal affect, normal mood - Skin Skin exam: Present: normal color, warm. Absent: cyanosis Results - Labs CBC & BMP: 11/12/16 04:36 11/13/16 04:44 Lab Results: I have reviewed the past 24 hour labs
[2016-11-13] MEDS: LORazepam 1 MG TABLET PO SCH ×3 (08:00→20:30)
[2016-11-13] MEDS: VENLAFAXINE 75 MG TABLET PO SCH ×4 (08:00→20:30)
[2016-11-13] MEDS: SOTALOL 80 MG TABLET PO SCH ×2 (08:00→20:30)
[2016-11-13] MEDS: MAGNESIUM OXIDE 400 MG TABLET PO SCH ×2 (08:01→20:30)
[2016-11-13] MEDS: LACTOBACILLUS ACIDOPHILUS/BULGARICUS CHEW TABLET PO SCH ×2 (08:02→20:30)
--- NOTE | 2016-11-13 09:48 | Cardiology Progress Note ---
Ladarius Gonzalez April, RN, am scribing for, and in the presence of, Roxanne Suazo DO 09 :48. Assessment and Plan (1) Atrial flutter Status: Acute Current Visit: Yes Qualifiers: Atrial flutter type: typical Qualified Code(s): I48.3 - Typical atrial flutter (2) Parkinsonism Status: Chronic Current Visit: Yes (3) Narcotic abuse Status: Chronic Current Visit: Yes (4) Obesity Status: Chronic Current Visit: Yes Qualifiers: Obesity type: due to excess calories (5) Obstructive sleep apnea Status: Chronic Current Visit: Yes (6) Atrial fibrillation with RVR Status: Acute Current Visit: Yes Cardiology - PN: Subj Interval history: Ms. Kapadia is seen in cardiac care unit in no acute distress. Oxygen use via nasal cannula, O2 sat 94%. She is currently in a flutter with heart rate of 118. The nurse that her heart rate did get up in the 150s last night, but it was when she been up to the bathroom. She is no longer on the diltiazem infusion. Sotalol 120 mg p.o. twice daily was started yesterday. Dr. Carl has seen patient in consultation. If the sotalol does not provide rhythm control he will plan to do a ARLEN/flutter ablation Wednesday. Blood pressures currently 114 /71. She reports she is still having some chest pain intermittently, stating is the same pain she has had since admission. Troponin has been negative 4 since admission. She reports she only gets short of breath when she gets up and moves around. She reports she does have palpitations and feel fluttering when her heart rate gets elevated. Saw and examined the patient this morning with Ms. Durand. I discussed with Dr. Carl. Plans for ablation on Wednesday after ARLEN. The patient's heart rate is down blood pressures remains marginal heart rate is in the 1 teens at this time she has no cardiopulmonary complaints. She is currently on sotalol will continue to monitor daily ECGs and agree with transfer out of ICU. Exam (Progress Note) - Constitutional Vitals: Period Temp Pulse Resp BP Sys/Stevens Pulse Ox Last 24 Hr 97.6 F-97.9 F 77-153 14-32 84-128/31-111 90-97 General appearance: no acute distress, morbidly obese - Head Head exam: Absent: abrasion, hematoma - Eye Eye exam: Absent: periorbital swelling, laceration to eyelids - Respiratory Respiratory exam: Present: clear to auscultation bilaterally, other (Oxygen via nasal cannula). Absent: accessory muscle use, chest wall tenderness - Cardiovascular Cardiovascular exam: Present: irregular rhythm, tachycardia - GI/Abdominal GI/Abdominal exam: Present: normal bowel sounds, tenderness, soft. Absent: distended - Extremities Exam Extremities exam: Absent: edema - Neurological Exam Neurological exam: Present: alert, oriented X3 - Psychiatric Psychiatric exam: Present: normal affect, anxious - Skin Skin exam: Present: warm, dry Result/EKG - Labs CBC & BMP: 11/12/16 04:36 11/13/16 04:44 Lab Results: I have reviewed the past 24 hour labs Labs: Laboratory Results - last 24 hr 11/13/16 04:44 Sodium 143 Potassium 3.9 Chloride 105 Carbon Dioxide 33 H Anion Gap 8.9 BUN 11 Creatinine 0.80 GFR Calculation 104 BUN/Creatinine Ratio 13.00 Glucose 113 H Calculated Osmolality 284.0 Calcium 8.5 Magnesium 2.0 - EKG EKG results: interpreted by me (Atrial flutter) I, Roxanne Suazo, , personally performed the services described in this documentation, ascribed by Abigail Durand RN in my presence, and it is both accurate and complete 948 .
--- NOTE | 2016-11-13 15:43 | Hospitalist Progress Note ---
Assessment and Plan (1) Atrial flutter Status: Acute Assessment and plan: 1)afib/flutter- on sotolol now, for ablation of flutter on Wednesday if it doesn't convert her or control her rhythm. Anticoagulated with lovenox. 2)chronic benzo and narcotic use 3)KATELYNN- Dr Otero has seen her and she will have a sleep study in [place] 4)Parkinson's disease- she has a brain stimulator that has helped her tremendously since it was placed. It means however that cardioversion should be avoided- see Dr Carl's note. 5)anxiety- on her home meds. 6)to telemetry today. Current Visit: Yes Qualifiers: Atrial flutter type: typical Qualified Code(s): I48.3 - Typical atrial flutter (2) Anxiety Status: Acute Current Visit: Yes (3) Hypotension Status: Acute Current Visit: Yes (4) Parkinson disease Status: Chronic Current Visit: Yes (5) Obesity Status: Chronic Current Visit: Yes Qualifiers: Obesity type: due to excess calories (6) Obstructive sleep apnea Status: Chronic Current Visit: Yes Hospitalist: Subjective Interval history: Mrs Kapadia is doing well today. Dr Carl has talked to her daughter and answered her questions. She is transferring to telemetry today on the Sotolol with tentative plans for ablation on Wednesday if it doesn't control her rate. She has been off the Diltiazem infusion for a day. She is mostly worried about her daughters worrying about her- they are a very close family. She is personally feeling encouraged. Exam - Constitutional Vitals: Period Temp Pulse Resp BP Sys/Stevens Pulse Ox Last 24 Hr 96.8 F-97.9 F 71-153 13-29 82-128/31-111 90-97 General appearance: no acute distress, morbidly obese - Head Head exam: Present: normocephalic, atraumatic - Eye Eye exam: Present: EOMI. Absent: scleral icterus - Respiratory Respiratory exam: Present: clear to auscultation bilaterally - Cardiovascular Cardiovascular exam: Present: irregular rhythm - GI/Abdominal GI/Abdominal exam: Present: normal bowel sounds, soft. Absent: tenderness - Extremities Exam Extremities exam: Present: edema (trace) Results - Labs CBC & BMP: 11/12/16 04:36 11/13/16 04:44 Lab Results: I have reviewed the past 24 hour labs
[2016-11-13] MEDS ORDERED: DILTIAZEM 50 MG/10 ML VIAL IV ONE (22:53)
[2016-11-14] MEDS: PROMETHAZINE 25 MG TABLET PO SCH ×6 (01:24→21:26)
[2016-11-14] MEDS: ACETAMINOPHEN 325 MG TABLET PO PRN ×2 (01:32→19:05)
[2016-11-14 04:55] LABS: Calcium 8.7 MG/DL (8.5-10.1); Osmolality,Calculated 282.3 MOS/KG (273-304)
[2016-11-14] MEDS: ENOXAPARIN 120 MG/0.8 ML SYRINGE SUBCUT SCH ×2 (06:16→18:09)
--- NOTE | 2016-11-14 08:00 | Cardiology Progress Note ---
Assessment and Plan (1) Atrial flutter Status: Acute Current Visit: Yes Qualifiers: Atrial flutter type: typical Qualified Code(s): I48.3 - Typical atrial flutter (2) Parkinsonism Status: Chronic Current Visit: Yes (3) Narcotic abuse Status: Chronic Current Visit: Yes (4) Obesity Status: Chronic Current Visit: Yes Qualifiers: Obesity type: due to excess calories (5) Obstructive sleep apnea Status: Chronic Current Visit: Yes (6) Atrial fibrillation with RVR Status: Acute Current Visit: Yes Cardiology - PN: Subj Interval history: Ms. Kapadia has no complaints at this time. She is on a Cardizem infusion her heart rate is an 85 and atrial flutter at this typical on the cannoneer. She is somnolent but responsive wakes up in has no complaints. The patient EKG is pending from this morning. We will monitor to assess her QTc interval sotalol. Review Dr. Carl's note and plans for intervention on Wednesday with a flutter ablation ARLEN are noted. I will start oral Cardizem at a rate comparable to her current IV infusion rate and try to wean her IV infusion. Labs tomorrow specifically CBC given her high-dose low molecular weight heparin. Exam (Progress Note) - Constitutional Vitals: Period Temp Pulse Resp BP Sys/Stevens Pulse Ox Last 24 Hr 96.8 F-98.2 F 71-145 13-20 82-121/54-70 90-97 General appearance: over weight - Head Head exam: Present: normal inspection - Eye Eye exam: Present: EOMI Pupils: Present: RYAN - Respiratory Respiratory exam: Present: clear to auscultation bilaterally - Cardiovascular Cardiovascular exam: Present: irregular rhythm (Rates about 80 she is in flutter with variable block on telemetry) - GI/Abdominal GI/Abdominal exam: Present: normal bowel sounds - Extremities Exam Extremities exam: Present: normal inspection - Neurological Exam Neurological exam: Present: alert, oriented X3 - Psychiatric Psychiatric exam: Present: normal affect, normal mood Result/EKG - Labs CBC & BMP: 11/12/16 04:36 11/14/16 03:17 Labs: Laboratory Results - last 24 hr 11/14/16 03:17 Sodium 141 Potassium 4.0 Chloride 101 Carbon Dioxide 32 Anion Gap 12.0 BUN 18 Creatinine 0.80 GFR Calculation 104 BUN/Creatinine Ratio 22.00 H Glucose 106 Calculated Osmolality 282.3 Calcium 8.7 Magnesium 2.0
--- NOTE | 2016-11-14 08:13 | EKG Report ---
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
[2016-11-14] MEDS: SOTALOL 80 MG TABLET PO SCH ×2 (08:17→21:25)
[2016-11-14] MEDS: VENLAFAXINE 75 MG TABLET PO SCH ×4 (08:17→21:26)
[2016-11-14] MEDS: MAGNESIUM OXIDE 400 MG TABLET PO SCH ×2 (08:17→21:25)
[2016-11-14] MEDS: LORazepam 1 MG TABLET PO SCH ×3 (08:18→21:25)
[2016-11-14] MEDS: DILTIAZEM CD 120 MG CAPSULE PO SCH (08:25)
--- NOTE | 2016-11-14 11:25 | Hospitalist Progress Note ---
Assessment and Plan (1) Atrial flutter Status: Acute Assessment and plan: Atrial flutter with RVR. On Cardizem drip. Cardiology following with plans for ablation on Wednesday Current Visit: Yes Qualifiers: Atrial flutter type: typical Qualified Code(s): I48.3 - Typical atrial flutter (2) Chest pain Status: Acute Current Visit: Yes (3) Parkinson disease Status: Chronic Current Visit: Yes (4) Obstructive sleep apnea Status: Chronic Current Visit: Yes Hospitalist: Subjective Interval history: Pt reports some rate related chest pressure. On Cardizem drip. Noted plans for ablation om Wednesday. Exam - Constitutional Vitals: Period Temp Pulse Resp BP Sys/Stevens Pulse Ox Last 24 Hr 96.6 F-98.2 F 71-145 13-20 82-121/54-70 90-97 General appearance: no acute distress - Head Head exam: Present: normocephalic, atraumatic - Eye Eye exam: Present: EOMI Pupils: Present: RYAN - ENT ENT exam: Present: normal exam - Neck Neck exam: Present: normal inspection. Absent: lymphadenopathy - Respiratory Respiratory exam: Present: clear to auscultation bilaterally. Absent: accessory muscle use, rhonchi, wheezes - Cardiovascular Cardiovascular exam: Present: tachycardia. Absent: diastolic murmur, gallop, rubs - GI/Abdominal GI/Abdominal exam: Present: normal bowel sounds. Absent: distended, tenderness - Extremities Exam Extremities exam: Present: normal inspection, full ROM - Neurological Exam Neurological exam: Present: alert, oriented X3 - Psychiatric Psychiatric exam: Present: normal affect, normal mood - Skin Skin exam: Present: normal color, warm, dry Results - Labs CBC & BMP: 11/12/16 04:36 11/14/16 03:17
[2016-11-14] MEDS: LACTOBACILLUS ACIDOPHILUS/BULGARICUS CHEW TABLET PO SCH ×2 (15:17→21:26)
[2016-11-15] MEDS: PROMETHAZINE 25 MG TABLET PO SCH ×3 (01:11→08:15)
[2016-11-15 04:28] LABS: Basophils % 0.5 % (0.0-0.8); Eosinophils # 0.2 10*3/uL (0.0-0.87); Eosinophils % 2.6 % (0.00-10.9); Hematocrit 34.2 VOL% (35.7-47.0); Hemoglobin 11.1 GM/DL (12.0-16.0); Immature Granulocytes % 0.1 %; Immature Granulocytes Absolute 0.01 #; Lymphocytes # 2.7 10*3/uL (1.4-4.0); Lymphocytes % 36.6 % (21.3-54.2); Mean Corpuscular HGB Conc 32.5 GM/DL (32-36); Mean Corpuscular Hemoglobin 31 PG (27-34); Mean Platelet Volume 12.4 FL (9.6-12.0); Monocytes # 0.5 10*3/uL (0.11-0.8); Monocytes % 6.8 % (1.7-12.7); Neutrophils % 53.4 % (38.7-73.9); Platelet Count 221 T/CUMM (130-400); White Blood Count 7.4 T/CUMM (4-12)
[2016-11-15 04:54] LABS: Calcium 8.3 MG/DL (8.5-10.1); Magnesium 1.9 MG/DL (1.8-2.4); Potassium 3.8 MMOL/L (3.5-5.1)
[2016-11-15] MEDS: ENOXAPARIN 120 MG/0.8 ML SYRINGE SUBCUT SCH ×2 (06:00→18:30)
--- NOTE | 2016-11-15 08:06 | Cardiology Progress Note ---
Assessment and Plan (1) Atrial flutter Status: Acute Assessment and plan: Normal sinus rhythm now. For possible ablation tomorrow. Holding Lovenox after tonight's dose. Labs pending for tomorrow morning and EKG for tomorrow morning. Current Visit: Yes Qualifiers: Atrial flutter type: typical Qualified Code(s): I48.3 - Typical atrial flutter (2) Parkinsonism Status: Chronic Current Visit: Yes (3) Narcotic abuse Status: Chronic Current Visit: Yes (4) Obesity Status: Chronic Current Visit: Yes Qualifiers: Obesity type: due to excess calories (5) Obstructive sleep apnea Status: Chronic Assessment and plan: Seen by Dr. Garcia and scheduled for polysomnography Current Visit: Yes (6) Paroxysmal atrial fibrillation with rapid ventricular response Status: Acute Current Visit: Yes Cardiology - PN: Subj Interval history: The patient is resting comfortably in bed today. She has no complaints she has not been out of bed except to go to the restroom. She continues to be on low molecular weight heparin she had a slight decline in her H&H but her platelets are good. I will hold but after tonight's dose at 1900. I do not know if Dr. Carl prefers her to be fully anticoagulated or not for his procedures. She is scheduled for ARLEN and a flutter ablation in the morning. She is currently converted to sinus rhythm and her heart rate is good. Telemetry strips all look good. I am awaiting her EKG for QT assessment this morning. QT interval was normal yesterday. She is currently on sotalol and diltiazem Exam (Progress Note) - Constitutional Vitals: Period Temp Pulse Resp BP Sys/Stevens Pulse Ox Last 24 Hr 96.6 F-97.6 F 59-99 18-20 103-134/57-64 90-97 General appearance: morbidly obese - Head Head exam: Present: normal inspection - Eye Eye exam: Present: EOMI Pupils: Present: RYAN - Neck Neck exam: Present: normal inspection - Respiratory Respiratory exam: Present: clear to auscultation bilaterally - Cardiovascular Cardiovascular exam: Present: regular rate and rhythm (No gallop) - GI/Abdominal GI/Abdominal exam: Present: normal bowel sounds - Extremities Exam Extremities exam: Present: normal inspection - Back Exam Back exam: Present: normal inspection - Neurological Exam Neurological exam: Present: alert, oriented X3 - Psychiatric Psychiatric exam: Present: depressed, flat affect - Skin Skin exam: Present: normal color, warm, dry Result/EKG - Labs CBC & BMP: 11/15/16 02:48 11/15/16 02:48 Labs: Laboratory Results - last 24 hr 11/15/16 11/15/16 02:48 02:48 WBC 7.4 RBC 3.60 L Hgb 11.1 L Hct 34.2 L MCV 95.0 MCH 31 MCHC 32.5 RDW 13.0 Plt Count 221 MPV 12.4 H Neut % (Auto) 53.4 Lymph % (Auto) 36.6 [place] % (Auto) 6.8 Eos % (Auto) 2.6 Baso % (Auto) 0.5 Neut # (Auto) 4.0 Lymph # (Auto) 2.7 [place] # (Auto) 0.5 Eos # (Auto) 0.2 Baso # (Auto) 0.0 Immature Gran % 0.1 Nucleated RBC % 0.0 Immature Gran # 0.01 Nucleated RBCs # 0.00 Sodium 143 Potassium 3.8 Chloride 104 Carbon Dioxide 31 Anion Gap 11.8 BUN 16 Creatinine 0.90 GFR Calculation 90 BUN/Creatinine Ratio 17.00 Glucose 173 H Calculated Osmolality 289.0 Calcium 8.3 L Magnesium 1.9
[2016-11-15] MEDS: LORazepam 1 MG TABLET PO SCH (08:14)
--- NOTE | 2016-11-15 08:17 | EKG Report ---
Stationary ECG Study [facility] Test Date: 11/15/2016 8:17:33 AM Pat Name: JOSE LACY Department: Room: 296 Gender: F Online Project Manager: : 1950 Requested by: Yemi Carl Order Number: [id number] Reading MD: BECKY KIMBALL Intervals [place] Rate: 70 P: 57 [place]: 190 QRS: 40 QRSD: 103 T: 83 QT: 426 QTc: 447 Interpretive Statements SINUS RHYTHM NON-SPECIFIC ST DEPRESSION Electronically Signed On 11-15-16 09:03:53 CDT by BECKY KIMBALL [email or web address]
[2016-11-15] MEDS: VENLAFAXINE 75 MG TABLET PO SCH ×2 (08:38→21:04)
[2016-11-15] MEDS: DILTIAZEM CD 120 MG CAPSULE PO SCH (08:39)
[2016-11-15] MEDS: SOTALOL 80 MG TABLET PO SCH ×2 (08:39→21:03)
[2016-11-15] MEDS: MAGNESIUM OXIDE 400 MG TABLET PO SCH ×2 (08:39→21:03)
[2016-11-15] MEDS: LACTOBACILLUS ACIDOPHILUS/BULGARICUS CHEW TABLET PO SCH ×2 (08:43→21:04)
[2016-11-15] MEDS ORDERED: PROMETHAZINE 25 MG TABLET PO PRN (10:19)
--- NOTE | 2016-11-15 10:21 | Hospitalist Progress Note ---
Assessment and Plan (1) Atrial flutter Status: Acute Assessment and plan: Converted to NSR. Off Cardizem drip. Plan for ARLEN and possible ablation in am. Hold NPO after midnight. Current Visit: Yes Qualifiers: Atrial flutter type: typical Qualified Code(s): I48.3 - Typical atrial flutter (2) Chest pain Status: Resolved Current Visit: Yes (3) Parkinson disease Status: Chronic Assessment and plan: Has implanted stimulator. Stable Current Visit: Yes (4) Obstructive sleep apnea Status: Chronic Current Visit: Yes Hospitalist: Subjective Interval history: Feels better. Chest pressure resolved. Now converted to NSR. No new complaints. Exam - Constitutional Vitals: Period Temp Pulse Resp BP Sys/Stevens Pulse Ox Last 24 Hr 97 F-98.6 F 59-99 18-20 103-134/57-64 90-97 General appearance: no acute distress - Head Head exam: Present: normocephalic, atraumatic - Eye Eye exam: Present: EOMI. Absent: conjunctival injection, scleral icterus Pupils: Present: RYAN - ENT ENT exam: Present: normal exam - Neck Neck exam: Present: normal inspection. Absent: lymphadenopathy - Respiratory Respiratory exam: Present: clear to auscultation bilaterally. Absent: rales, rhonchi, wheezes - Cardiovascular Cardiovascular exam: Present: regular rate and rhythm. Absent: gallop, rubs - GI/Abdominal GI/Abdominal exam: Present: normal bowel sounds. Absent: distended, guarding, tenderness - Extremities Exam Extremities exam: Present: normal inspection, full ROM - Neurological Exam Neurological exam: Present: alert, oriented X3 - Psychiatric Psychiatric exam: Present: normal affect, normal mood - Skin Skin exam: Present: normal color, warm, dry Results - Labs CBC & BMP: 11/15/16 02:48 11/15/16 02:48
--- NOTE | 2016-11-15 11:44 | Electrophysiology Progress Not ---
Assessment and Plan (1) Atrial fibrillation with RVR Status: Acute Assessment and plan: 64-year-old female, presenting with atrial fibrillation/atypical atrial flutter , RVR, hypertension. Mild acute kidney injury, resolved with hydration. Severe Parkinson's disease, status post bilateral brain stimulator. Morbid obesity, chronic pain issues. -Typical atrial flutter and atrial fibrillation. The flutter converted to sinus rhythm with sotalol. She is feeling better now, there was no significant bradycardia. -We discussed risks and benefits of management options. The risk of recurrence of typical atrial flutter is high, it was hemodynamically unstable and she can' t be cardioverted due to the brain stimulators in place. She would like to go ahead with ablation. -We will plan to proceed with flutter ablation tomorrow in conscious sedation, keep n.p.o. after midnight. -Continue anticoagulation. Plan to switch to NOAC after the ablation. Follow CBC -Continue sotalol 120 mg bid. Plan to keep it even after the ablation to prevent recurrence of AF. She is too high risk for a PVI. -Hypotension, acute kidney injury. Resolved. I suspect this was due to dehydration. Current Visit: Yes (2) COPD (chronic obstructive pulmonary disease) Status: Acute Current Visit: Yes (3) Chest pain Status: Resolved Current Visit: Yes (4) Atrial flutter Status: Acute Current Visit: Yes Qualifiers: Atrial flutter type: typical Qualified Code(s): I48.3 - Typical atrial flutter (5) Hypotension Status: Acute Current Visit: Yes (6) Parkinsonism Status: Chronic Current Visit: Yes (7) Obesity Status: Chronic Current Visit: Yes Qualifiers: Obesity type: due to excess calories (8) Obstructive sleep apnea Status: Chronic Current Visit: Yes Electrophysiology Subjective Interval history: She is feeling better. Converted back to sinus rhythm, without significant, or samples. No significant QTc prolongation or proarrhythmia noted. Renal function remains stable. No bleeding issues. She still feeling very weak Exam - Constitutional Vitals: Period Temp Pulse Resp BP Sys/Stevens Pulse Ox Last 24 Hr 97 F-98.6 F 59-84 18-20 103-127/57-61 90-97 General appearance: no acute distress, morbidly obese - Head Head exam: Present: normal inspection, normocephalic - Eye Eye exam: Absent: conjunctival injection Pupils: Absent: dilated - ENT ENT exam: Present: normal external ear exam - Neck Neck exam: Present: normal inspection - Respiratory Respiratory exam: Present: clear to auscultation bilaterally - Cardiovascular Cardiovascular exam: Present: regular rate and rhythm - GI/Abdominal GI/Abdominal exam: Present: normal bowel sounds. Absent: distended, guarding - Extremities Exam Extremities exam: Present: normal inspection, normal capillary refill, edema (1+ ) - Neurological Exam Neurological exam: Present: alert, oriented X3 - Psychiatric Psychiatric exam: Present: normal affect, normal mood - Skin Skin exam: Present: normal color, warm. Absent: cyanosis Results - Labs CBC & BMP: 11/15/16 02:48 11/15/16 02:48 Lab Results: I have reviewed the past 24 hour labs
[2016-11-15] MEDS: LORazepam 1 MG TABLET PO PRN (21:03)
[2016-11-16] MEDS: ENOXAPARIN 120 MG/0.8 ML SYRINGE SUBCUT SCH (05:14)
[2016-11-16 05:15] LABS: Basophils % 0.6 % (0.0-0.8); Eosinophils # 0.2 10*3/uL (0.0-0.87); Eosinophils % 2.9 % (0.00-10.9); Hematocrit 35.2 VOL% (35.7-47.0); Immature Granulocytes % 0.3 %; Immature Granulocytes Absolute 0.02 #; Lymphocytes # 2.7 10*3/uL (1.4-4.0); Lymphocytes % 39.1 % (21.3-54.2); Mean Corpuscular HGB Conc 34.1 GM/DL (32-36); Mean Corpuscular Hemoglobin 31 PG (27-34); Mean Corpuscular Volume 91.4 FL (87-102); Mean Platelet Volume 11.7 FL (9.6-12.0); Monocytes # 0.5 10*3/uL (0.11-0.8); Monocytes % 6.6 % (1.7-12.7); Neutrophils # 3.5 10*3/uL (1.4-7.4); Neutrophils % 50.5 % (38.7-73.9); Platelet Count 220 T/CUMM (130-400); Red Blood Count 3.85 MC/CUMM (3.8-5.5); Red Cell Distribution Width 12.8 % (9.3-17.3)
[2016-11-16 05:24] LABS: INR 1.1; PT Patient Result 11.3 SECS; Partial Thromboplastin Time 28.7 SECS (0-40)
[2016-11-16 05:56] LABS: Calcium 8.7 MG/DL (8.5-10.1); Osmolality,Calculated 281.1 MOS/KG (273-304); Potassium 3.5 MMOL/L (3.5-5.1)
--- NOTE | 2016-11-16 07:07 | EKG Report ---
Stationary ECG Study [facility] Test Date: 11/16/2016 7:07:04 AM Pat Name: JOSE LACY Department: Room: 296 Gender: F Suit Attendant: DAVID : 1950 Requested by: Yemi Carl Order Number: [id number] Reading MD: MANAN BANDA Intervals [place] Rate: 67 P: 37 [place]: 155 QRS: 36 QRSD: 100 T: 51 QT: 439 QTc: 455 Interpretive Statements SINUS RHYTHM LOW QRS VOLTAGE IN PRECORDIAL LEADS INFERIOR MYOCARDIAL INFARCTION, PROBABLY OLD Electronically Signed On 11-17-16 21:54:08 CDT by MANAN BANDA [id number]
--- NOTE | 2016-11-16 07:30 | History and Physical Update ---
Sedation H&P Update - History and Physical H&P was reviewed, the patient examined and there: are no changes in the patients condition since last H&P was completed. - Dictation Physical: refer to H&P completed by admitting physician - Physical Exam Mental Status: alert and oriented Heart: regular rate and rhythm Lung: clear to auscultation Abdomen: within normal limits Vitals: within normal limits - Sedation Plan for Sedation: moderate Patient Consent: Procedure disscussed with patient and patinet has consented., Risks and benefits were discussed with patient,including infection,, bleeding, injury to surrounding structures, seizure, temporary nerve, Patient understands and accepts potential risks/benefits and agrees to ASA Class: IV Airway Assessment: Class III: Soft palate, base of uvula visible
[2016-11-16] MEDS: LORazepam 1 MG TABLET PO PRN ×2 (08:56→20:59)
[2016-11-16] MEDS: ONDANSETRON 4 MG/2 ML VIAL IV PRN (11:01)
[2016-11-16] MEDS ORDERED: HEPARIN/NACL 0.9% 2 UNITS/ML 1,000 ML IV ONE (12:30)
[2016-11-16] MEDS ORDERED: LIDOCAINE 1% 20 ML VIAL ONE (12:30)
[2016-11-16] MEDS ORDERED: fentaNYL 100 MCG/2 ML VIAL ONE ×2 (12:42→13:42)
[2016-11-16] MEDS ORDERED: MIDAZOLAM 2 MG/2 ML VIAL ONE ×2 (12:42→13:42)
[2016-11-16] MEDS ORDERED: HEPARIN 5,000 UNIT/1 ML VIAL ONE (12:46)
[2016-11-16] MEDS ORDERED: diphenhydrAMINE 50 MG/1 ML VIAL ONE (12:52)
[2016-11-16] MEDS ORDERED: HEPARIN/NACL 0.9% 2 UNITS/ML 500 ML IV ONE ×2 (13:55→14:21)
--- NOTE | 2016-11-16 14:09 | Hospitalist Progress Note ---
Assessment and Plan (1) Atrial flutter Status: Acute Assessment and plan: Scheduled for ablation by Dr. Carl today Current Visit: Yes Qualifiers: Atrial flutter type: typical Qualified Code(s): I48.3 - Typical atrial flutter (2) Congestive heart failure Status: Acute Assessment and plan: resolved with lasix and lasix now on hold Current Visit: Yes (3) COPD (chronic obstructive pulmonary disease) Status: Acute Assessment and plan: stable Current Visit: Yes (4) Parkinson disease Status: Chronic Assessment and plan: has brain stimulators. PT evaluation and treat Current Visit: Yes (5) Obstructive sleep apnea Status: Chronic Assessment and plan: sleep study scheduled for next wednesday Current Visit: Yes Hospitalist: Subjective Interval history: Patient's daughter is a nurse. Patient is extremely weak and off balance. Will have PT evaluate her. She also has a lump in her right lower quadrant. She is morbidly obese. I see no evidence of an external hematoma. She has a sleep study scheduled for next Wednesday. She has had a left forearm fracture for at least 4 weeks and is already out of the cast but still is in a wrist support. Will re-x-ray to make sure improving. Patient is scheduled to have an ablation today by Dr. Limon. Exam - Constitutional Vitals: Period Temp Pulse Resp BP Sys/Stevens Pulse Ox Last 24 Hr 97 F-97.9 F 70-78 18-20 115-129/59-71 90-95 Exam: Heart Rate-[RRR] Lungs-[CTAB] GI-[+bs soft, NT, obese, right lower quadrant firm lump ] Ext-[1+ chronic lymph edema] Neuro [Motor 5/5], [alert and oriented times 3] psych [normal mood and affect] General [no acute distress] Results - Labs CBC & BMP: 11/16/16 05:02 11/16/16 05:02 Lab Results: I have reviewed the past 24 hour labs
[2016-11-16] MEDS ORDERED: ADENOSINE 90 MG/30 ML VIAL IV ONE (14:33)
[2016-11-16] MEDS ORDERED: MORPHINE 2 MG/1 ML SYRINGE IV PRN (14:44)
--- NOTE | 2016-11-16 15:04 | Electrophysiology Report ---
Date of Procedure:: 11/16/16 Pre-op diagnosis: Typical AFL/AF Post-op diagnosis: same Procedure: PROCEDURAL SUMMARY EP study with ablation of typical atrial flutter (cavotricuspid isthmus linear lesion). Successful procedure, no complications. DIAGNOSES Atrial flutter Atrial fibrillation Bilateral implanted deep brain stimulator for Parkinson disease PROCEDURE REPORT A timeout was performed before the procedure. Sedation Moderate conscious sedation was initiated and maintained with iv. Versed and Fentanyl. The patient was continuously monitored with ECG, pulse oximetry and NIBP. Anticoagulation The patient was anticoagulated with LMWH. Iv. heparin 5000U was administered before the ablation. Access and cathetes The Seldinger technique was performed utilizing a 21 gauge micropuncture needle and 0.[address] the following sheaths. RFV: [address] [employer] Smarttouch bidirectional irrigated tip ablation catheter RFV: 8 Fr decapolar diagnostic CS catheter RFV: 8 Fr Duodecapolar diagnostic Halo catheter Electrophysiologic Study - baseline Baseline ECG: sinus rhythm, RR 750 ms, W[place] 161, QRS 89, QT 408. There was no preexcitation. The ablation catheter was introduced under electroanatomical guidance and a right atrial 3D fast anatomical map was constructed using Minimally invasive devices. The coronary sinus and Halo catheters were then introduced, under electroanatomical guidance. AH 93 ms, HV 46 ms. Retrograde Wenckebach 540 ms. Conduction decremental, concentric. Retrograde AVNERP 600/480. No jump. Para-His pacing showed and increase of VA conduction time from 89 to 121 ms upon loss of direct His bundle capture. Atrial ERP 260 ms with burst stimulation. Burst stimulation down to 240 ms did not induce arrhythmia. As the presence of the deep brain stimulators precludes cardioversion, pharmacological challange was not attempted, to prevent inducing AF. Due to the prior documented typical atrial flutter, a CTI isthmus ablation was then pursued. Ablation cavotricupid isthmus linear lesion The His was marked on CARTO. Using electroanatomical guidance, lesions were delivered in the CTI region to create a line of block. Persistent block through the CTI region was confirmed with the Halo catheter. Prox CS to distal Halo delay 131 ms. Distal Halo to prox CS delay 130 ms. Follow up EP study, EP study during drug infusion Iv. adenosine was administered to confirm persistent block, during prox CS, then distal Halo pacing. The delay remained unchanged, with no change in atrial activation sequence on the Halo. Bradycardia was avoided by backup RV pacing. AH 91, HV 37. VA Wb 580 ms. Conduction concentric, decremental. AV Wb 340 ms. Conduction concentric, decremental. AERP 600/280. No jump. End of the procedure The catheters were removed and the sheaths were pulled. Manual compression was applied until hemostasis was achieved. There were no complications. PROCEDURE(S) 1. Comprehensive electrophysiologic evaluation including insertion and repositioning of multiple electrode catheters with induction or attempted induction of an arrhythmia with right atrial pacing and recording, right ventricular pacing and recording (when necessary), His bundle recording (when necessary) with intracardiac catheter ablation of arrhythmogenic focus; with treatment of supraventricular tachycardia by ablation of fast or slow atrioventricular pathway, accessory atrioventricular connection, cavo-tricuspid isthmus or other single atrial focus or source of atrial re-entry 2. Programmed stimulation and pacing after intravenous drug infusion 3. Intracardiac electrophysiologic three-dimensional mapping 4. Moderate conscious sedation Anesthesia: moderate conscious sedation Surgeon / Physician: Yemi Carl Customer Success Representative: other (Gregorio Mcdonnell) Estimated blood loss: minimal Specimens: none sent Condition: stable Disposition: floor
[2016-11-16] MEDS: MAGNESIUM OXIDE 400 MG TABLET PO SCH ×2 (16:08→20:59)
[2016-11-16] MEDS: LACTOBACILLUS ACIDOPHILUS/BULGARICUS CHEW TABLET PO SCH ×2 (16:08→20:58)
[2016-11-16] MEDS: VENLAFAXINE 75 MG TABLET PO SCH ×2 (16:08→20:58)
[2016-11-16] MEDS: SOTALOL 80 MG TABLET PO SCH ×2 (16:08→20:58)
--- NOTE | 2016-11-16 17:57 | EKG Report ---
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
--- NOTE | 2016-11-16 18:30 | XRay Report ---
Referring Physician: Rody Eller Exam: XR left forearm 2 views Date: November 16, 2016 at 2:27 PM Reason: Fracture left forearm Comparison: None Findings: There are fractures of the distal left radius and left ulna. The fracture of the distal left radius is mildly displaced and slightly impacted, and it is centered at the metaphysis with possible intra-articular involvement. These fractures are of indeterminate age. No additional fractures are identified. Impression: There are mildly displaced fractures of the distal left radius and ulna, which are of indeterminate age. PROCEDURE INTERPRETED AT [facility] DEPARTMENT OF RADIOLOGY Final Report Signed by: Dr. Diana Ruiz
[2016-11-16] MEDS: DILTIAZEM CD 120 MG CAPSULE PO SCH (20:58)
[2016-11-16] MEDS: APIXABAN 5 MG TABLET PO SCH (20:59)
[2016-11-17 05:55] LABS: Basophils % 0.6 % (0.0-0.8); Eosinophils # 0.1 10*3/uL (0.0-0.87); Eosinophils % 1.8 % (0.00-10.9); Hematocrit 35.7 VOL% (35.7-47.0); Hemoglobin 11.9 GM/DL (12.0-16.0); Immature Granulocytes % 0.3 %; Immature Granulocytes Absolute 0.02 #; Mean Corpuscular HGB Conc 33.3 GM/DL (32-36); Mean Corpuscular Hemoglobin 31 PG (27-34); Mean Corpuscular Volume 92.5 FL (87-102); Mean Platelet Volume 11.6 FL (9.6-12.0); Monocytes # 0.6 10*3/uL (0.11-0.8); Monocytes % 9.6 % (1.7-12.7); Neutrophils # 3.5 10*3/uL (1.4-7.4); Neutrophils % 55.7 % (38.7-73.9); Platelet Count 230 T/CUMM (130-400); Red Blood Count 3.86 MC/CUMM (3.8-5.5); Red Cell Distribution Width 13.1 % (9.3-17.3); White Blood Count 6.3 T/CUMM (4-12)
[2016-11-17 06:36] LABS: Calcium 8.6 MG/DL (8.5-10.1); Osmolality,Calculated 277.5 MOS/KG (273-304); Potassium 3.8 MMOL/L (3.5-5.1)
[2016-11-17 06:37] LABS: Calcium 8.8 MG/DL (8.5-10.1); Magnesium 1.9 MG/DL (1.8-2.4); Osmolality,Calculated 277.5 MOS/KG (273-304); Potassium 3.8 MMOL/L (3.5-5.1)
--- NOTE | 2016-11-17 08:31 | Electrophysiology Progress Not ---
Assessment and Plan (1) Atrial fibrillation with RVR Status: Acute Assessment and plan: 64-year-old female, presenting with atrial fibrillation/atypical atrial flutter , RVR, hypertension. Mild acute kidney injury, resolved with hydration. Severe Parkinson's disease, status post bilateral brain stimulator. Morbid obesity, chronic pain issues. 11/16: CTI ablation -Typical atrial flutter. No recurrence since ablation -H/o AF. Continue sotalol 120 mg twice daily. -Continue anticoagulation with Eliquis. Hematocrit stable. -FU with EP in 1 week -FU sleep eval results Current Visit: Yes (2) COPD (chronic obstructive pulmonary disease) Status: Acute Current Visit: Yes (3) Chest pain Status: Resolved Current Visit: Yes (4) Atrial flutter Status: Acute Current Visit: Yes Qualifiers: Atrial flutter type: typical Qualified Code(s): I48.3 - Typical atrial flutter (5) Hypotension Status: Acute Current Visit: Yes (6) Parkinsonism Status: Chronic Current Visit: Yes (7) Obesity Status: Chronic Current Visit: Yes Qualifiers: Obesity type: due to excess calories (8) Obstructive sleep apnea Status: Chronic Current Visit: Yes Electrophysiology Subjective Interval history: She is feeling fine. There is no groin hematoma. Sinus rhythm, without atrial flutter or fib on telemetry. QTc remained normal. No proarrhythmia from sotalol. Exam - Constitutional Vitals: Period Temp Pulse Resp BP Sys/Stevens Pulse Ox Last 24 Hr 97.1 F-98.1 F 78-87 16-20 123-160/59-86 90-98 General appearance: no acute distress, morbidly obese - Head Head exam: Present: normal inspection - Eye Eye exam: Absent: conjunctival injection Pupils: Absent: dilated - ENT ENT exam: Present: normal external ear exam - Neck Neck exam: Present: normal inspection - Respiratory Respiratory exam: Present: clear to auscultation bilaterally - Cardiovascular Cardiovascular exam: Present: regular rate and rhythm - GI/Abdominal GI/Abdominal exam: Present: normal bowel sounds. Absent: distended - Extremities Exam Extremities exam: Present: normal inspection, normal capillary refill. Absent: edema - Neurological Exam Neurological exam: Present: alert, oriented X3 - Psychiatric Psychiatric exam: Present: normal affect, normal mood - Skin Skin exam: Present: normal color, warm. Absent: cyanosis Results - Labs CBC & BMP: 11/17/16 05:37 11/17/16 05:37 Lab Results: I have reviewed the past 24 hour labs Specialty Discharge - Follow Up or Referrals - Speciality Discharge Instructions Cardiology Instructions: FU with EPdr. Carl in 1 week
[2016-11-17] MEDS: VENLAFAXINE 75 MG TABLET PO SCH (08:32)
[2016-11-17] MEDS: LACTOBACILLUS ACIDOPHILUS/BULGARICUS CHEW TABLET PO SCH ×2 (08:32→08:35)
[2016-11-17] MEDS: DILTIAZEM CD 120 MG CAPSULE PO SCH (08:32)
[2016-11-17] MEDS: MAGNESIUM OXIDE 400 MG TABLET PO SCH (08:32)
[2016-11-17] MEDS: APIXABAN 5 MG TABLET PO SCH (08:33)
[2016-11-17] MEDS: SOTALOL 80 MG TABLET PO SCH (08:33)
[2016-11-17] MEDS ORDERED: NYSTATIN POWDER 15 GM BOTTLE TOP SCH (10:00)
[2016-11-17] MEDS: ACETAMINOPHEN 325 MG TABLET PO PRN (10:56)
--- NOTE | 2016-11-17 11:12 | Discharge Summary ---
Hospital Course - Hospital Course Hospital Course: Ms. Kapadia is a 66 year old morbid obese, parkinson female present to ER with chest pain. She was in atrial flutter at [facility] and sent here for evaluation. Dr. Suazo was consulted and feels that the mechanism for the atrial flutter was most likely due to untreated sleep apnea. Patient is morbidly obese and has hypo-ventilation syndrome. She is scheduled for a sleep study at [facility] I believe next week with Dr. Garcia. Patient was noted to have some mild hypotension on admission which has since resolved. She was started on diltiazem IV and her heart rate remains in atrial flutter. Echocardiogram showed a normal EF with borderline pulmonary hypertension. Dr. Carl was consulted and recommended ablation. Patient had a EP ablation on November. She has remained in sinus rhythm and is rate controlled on diltiazem p.o. and sotalol. Patient also has a left forearm fracture that was not healing according to family. She had been in a cast twice and then was placed in the support. X-ray of her left wrist shows a mildly displaced fractures of her radius and ulna. Patient does not want to see a orthopedist in the hospital but wants us to schedule her an appointment to see an orthopedic doctor here. I am concerned as her fractures are displaced and she needs to be seen rather quickly. She does not want to return to her current orthopedist. Patient to follow-up with Dr. Carl and Dr. Lino on the same day. Patient needs to avoid narcotics due to untreated sleep apnea and current problems with balance. We are getting a Rollator walker with seat and brakes. We also recommend home health with home PT - Time spent with patient Time with patient DS: Greater than 30 minutes (55 min) Diagnosis - Discharge Diagnosis (1) Atrial flutter Status: Acute (2) Congestive heart failure Status: Acute (3) COPD (chronic obstructive pulmonary disease) Status: Acute (4) Parkinson disease Status: Chronic (5) Obstructive sleep apnea Status: Chronic Specialty Discharge - Follow Up or Referrals Follow up with: Yemi Carl MD [Physician] - 11/25/16 12:50 pm Discharge Plan - Discharge Data Disposition: Disch To Home/Self Care Condition at Discharge: Stable Discharge Diet: heart healthy, low fat, low cholesterol Activity: ambulate only with your walker Hygiene: no restrictions Weight Bearing at Discharge: full weight bearing - Discharge Medications New Apixaban [Eliquis] 5 mg PO BID #60 tablet Diltiazem Cd Cap [Cardizem CD] 120 mg PO DAILY #30 capsule Nystatin Powder [Mycostatin Powder] 1 applic TOP BID #1 gram Sotalol [Betapace] 120 mg PO BID #90 tablet Continue HYDROcodone/ACETAMIN 5-325 [Chaplin 5-325] 5 mg PO Q3-4H PRN PRN Reason: Pain Moderate (4-7) Promethazine Tab [Phenergan Tab] 25 mg PO Q4-6H PRN PRN Reason: Nausea/Vomiting Venlafaxine HCl [Venlafaxine HCl ER] 75 mg PO BID LORazepam TAB [Ativan Tab] 1 mg PO TID PRN PRN Reason: Anxiety Discontinued Orphenadrine Citrate 100 mg PO BID Furosemide Tab [Lasix Tab] 40 mg PO BID DIURETIC tiZANidine [Zanaflex] 4 mg PO BEDTIME Nitroglycerin Sl Tab [Nitrostat] 0.4 mg PO DIRECTED PRN PRN Reason: Angina - Follow Up or Referral Follow Up: Yemi Carl MD [Physician] - 11/25/16 12:50 pm Douglas Lino Jr., MD [Physician] - 11/25/16 Radha Garcia MD [Physician] - (as scheduled ) Dr. Delroy [Other] - 2 Weeks - Forms/Instructions Exam - Constitutional Vitals: Period Temp Pulse Resp BP Sys/Stevens Pulse Ox Last 24 Hr 97.1 F-98.1 F 78-87 16-20 123-160/59-86 90-98 General appearance: no acute distress, morbidly obese - Respiratory Respiratory exam: Present: clear to auscultation bilaterally. Absent: rhonchi, wheezes - Cardiovascular Cardiovascular exam: Present: regular rate and rhythm, systolic murmur - GI/Abdominal GI/Abdominal exam: Present: normal bowel sounds, soft. Absent: tenderness - Extremities Exam Extremities exam: Present: normal capillary refill, edema (chronic lymph edema due to obesity) - Neurological Exam Neurological exam: Present: alert, oriented X3 Discharge Results Procedures and tests throughout hospitalization: Pending Orders 11/17/16 12:52 US abdomen limited Routine Labs on day of discharge: Labs from last 24 hours 11/17/16 11/17/16 11/17/16 05:37 05:37 05:37 WBC 6.3 RBC 3.86 Hgb 11.9 L Hct 35.7 MCV 92.5 MCH 31 MCHC 33.3 RDW 13.1 Plt Count 230 MPV 11.6 Neut % (Auto) 55.7 Lymph % (Auto) 32.0 Woods % (Auto) 9.6 Eos % (Auto) 1.8 Baso % (Auto) 0.6 Neut # (Auto) 3.5 Lymph # (Auto) 2.0 Woods # (Auto) 0.6 Eos # (Auto) 0.1 Baso # (Auto) 0.0 Immature Gran % 0.3 Nucleated RBC % 0.0 Immature Gran # 0.02 Nucleated RBCs # 0.00 Sodium 139 139 Potassium 3.8 3.8 Chloride 102 102 Carbon Dioxide 28 29 Anion Gap 12.8 11.8 BUN 12 12 Creatinine 0.70 0.70 GFR Calculation 122 122 BUN/Creatinine Ratio 17.00 17.00 Glucose 109 H 108 H Hemoglobin A1c Calculated Osmolality 277.5 277.5 Calcium 8.8 8.6 Magnesium 1.9 11/16/16 05:02 WBC RBC Hgb Hct MCV MCH MCHC RDW Plt Count MPV Neut % (Auto) Lymph % (Auto) Woods % (Auto) Eos % (Auto) Baso % (Auto) Neut # (Auto) Lymph # (Auto) Woods # (Auto) Eos # (Auto) Baso # (Auto) Immature Gran % Nucleated RBC % Immature Gran # Nucleated RBCs # Sodium Potassium Chloride Carbon Dioxide Anion Gap BUN Creatinine GFR Calculation BUN/Creatinine Ratio Glucose Hemoglobin A1c 6.7 H Calculated Osmolality Calcium Magnesium DS: Provider Date of admission: 11/10/16 22:35 Primary care physician: . No PCP Attending physician on admission: Herb Timmons MD Consults: 11/10/16 22:38 Consult to Physician [CONS] Routine Comment: On-call/flutter with RVR/diltiazem hypotension Consulting Provider: Roxanne Suazo Consult to Specialist Group: Cardiology When should Consulting Provider be notified: Now Person Notified: Essie Suazo Date Notified: 11/11/16 Time Notified: 00:32 11/11/16 02:51 Consult to Dietitian [CONS] Routine Reason for Dietitian: Other Consult to Pastoral Services [CONS] Routine Comment: Pastoral Screen: Request Property Investor Visit Pastoral Screen Source of Request: Patient 11/12/16 08:45 Consult to Physician [CONS] Routine Comment: afib/flutter Consulting Provider: Yemi Carl 11/12/16 09:33 Consult to Physician [CONS] Routine Comment: r/o KATELYNN Consulting Provider: Radha Garcia When should Consulting Provider be notified: Now 11/16/16 12:53 Consult to Physical Therapy [CONS] Routine Reason for Physical Therapy: Evaluate and Treat Start Therapy: Today 11/16/16 14:52 Consult to Pharmacy [CONS] Routine Reason for Pharmacy Consult: Adjust Meds Renal Funct Discharging clinician: Rody Eller MD
--- NOTE | 2016-11-17 11:16 | Cardiology Progress Note ---
Ladarius Gonzalez April, RN, am scribing for, and in the presence of, Cassius Valentin MD 11:13. Assessment and Plan (1) Atrial flutter Status: Acute Assessment and plan: She is post ablation doing well with this. She will continue her medications. Dr. Limon will follow-up on this. Current Visit: Yes Qualifiers: Atrial flutter type: typical Qualified Code(s): I48.3 - Typical atrial flutter (2) Parkinsonism Status: Chronic Assessment and plan: She is on medications and follow-up by physician. Current Visit: Yes (3) Narcotic abuse Status: Chronic Current Visit: Yes (4) Obesity Status: Chronic Current Visit: Yes Qualifiers: Obesity type: due to excess calories (5) Obstructive sleep apnea Status: Chronic Current Visit: Yes Cardiology - PN: Subj Interval history: Ms. Kapadia is seen resting in bed in no acute distress. She denies any chest pain, shortness of breath, palpitations, or dizziness. She had an EP study with ablation of typical atrial flutter with Dr. Carl yesterday. Right groin is tender without evidence of bleeding or hematoma. She denies any pain to her right leg. radiation monitor currently shows sinus rhythm with heart rates in the 80s. Blood pressures have been stable throughout the night. She will follow-up with Dr. Carl in 1 week. She is anticoagulated on Eliquis. She is on sotalol 120 PM twice daily as well as diltiazem 120 p.o. daily. Labs are unremarkable. She's done well after EP study and ablation. She's had no dysrhythmias palpitations. She's had no complications of procedure. She is stable and actually can be discharged today. She has appointment scheduled with Dr. Carl. Exam (Progress Note) - Constitutional Vitals: Period Temp Pulse Resp BP Sys/Stevens Pulse Ox Last 24 Hr 97.1 F-98.1 F 78-87 16-20 123-160/59-86 90-98 General appearance: no acute distress, morbidly obese - Head Head exam: Absent: abrasion, hematoma - Eye Eye exam: Absent: periorbital swelling, laceration to eyelids - Respiratory Respiratory exam: Present: clear to auscultation bilaterally. Absent: accessory muscle use, chest wall tenderness - GI/Abdominal GI/Abdominal exam: Present: normal bowel sounds, soft. Absent: distended, tenderness - Extremities Exam Extremities exam: Absent: edema - Neurological Exam Neurological exam: Present: alert, oriented X3 - Psychiatric Psychiatric exam: Present: normal affect, normal mood - Skin Skin exam: Present: warm, dry Result/EKG - Labs CBC & BMP: 11/17/16 05:37 11/17/16 05:37 Lab Results: I have reviewed the past 24 hour labs Labs: Laboratory Results - last 24 hr 11/16/16 11/17/16 11/17/16 05:02 05:37 05:37 WBC 6.3 RBC 3.86 Hgb 11.9 L Hct 35.7 MCV 92.5 MCH 31 MCHC 33.3 RDW 13.1 Plt Count 230 MPV 11.6 Neut % (Auto) 55.7 Lymph % (Auto) 32.0 [place] % (Auto) 9.6 Eos % (Auto) 1.8 Baso % (Auto) 0.6 Neut # (Auto) 3.5 Lymph # (Auto) 2.0 [place] # (Auto) 0.6 Eos # (Auto) 0.1 Baso # (Auto) 0.0 Immature Gran % 0.3 Nucleated RBC % 0.0 Immature Gran # 0.02 Nucleated RBCs # 0.00 Sodium 139 Potassium 3.8 Chloride 102 Carbon Dioxide 29 Anion Gap 11.8 BUN 12 Creatinine 0.70 GFR Calculation 122 BUN/Creatinine Ratio 17.00 Glucose 108 H Hemoglobin A1c 6.7 H Calculated Osmolality 277.5 Calcium 8.6 Magnesium 11/17/16 05:37 WBC RBC Hgb Hct MCV MCH MCHC RDW Plt Count MPV Neut % (Auto) Lymph % (Auto) [place] % (Auto) Eos % (Auto) Baso % (Auto) Neut # (Auto) Lymph # (Auto) [place] # (Auto) Eos # (Auto) Baso # (Auto) Immature Gran % Nucleated RBC % Immature Gran # Nucleated RBCs # Sodium 139 Potassium 3.8 Chloride 102 Carbon Dioxide 28 Anion Gap 12.8 BUN 12 Creatinine 0.70 GFR Calculation 122 BUN/Creatinine Ratio 17.00 Glucose 109 H Hemoglobin A1c Calculated Osmolality 277.5 Calcium 8.8 Magnesium 1.9 - EKG EKG results: interpreted by me EKG shows: sinus rhythm Specialty Discharge - Follow Up or Referrals Follow up with: Yemi Carl MD [Physician] - 1 Week IHomero John Timothy, MD, personally performed the services described in this documentation, ascribed by Abigail Durand RN in my presence, and it is both accurate and complete .
[2016-11-17 12:11] VITALS: BP 102/48
== END 2016-11-17 14:05 | disposition home or self-care (01) | DRG 273 ==
LOC: EDBD → EDUNIT# → N.ED 19:54 → N.EDINP 22:35 → SUATTDRO 22:35 → N.CC 23:42 → N.TELEN 11-13 15:03
PROVIDERS: ADMIT Internal Medicine Infectious Disease; ATTEND Internal Medicine